=== PATIENT | female | born 1960 | race Caucasian/White ===

== ENCOUNTER 2016-12-23 11:31 | Emergency (ER) | payer MEDICARE ==
[~2016-12-23] VITALS: Ht 162.6 cm; Wt 85.0 kg
[2016-12-23] MEDS ORDERED: GABA600T PO (12:04)
[2016-12-23] MEDS ORDERED: SERO1TAB PO (12:04)
[2016-12-23] MEDS ORDERED: LEVO88TA3 PO (12:04)
[2016-12-23] MEDS ORDERED: TRAZ-136 PO (12:04)
[2016-12-23] MEDS ORDERED: COPA20IN SC (12:04)
[2016-12-23] MEDS ORDERED: BREO1INH INH (12:08)
[2016-12-23] MEDS ORDERED: PROAAER10 INH (12:08)
--- NOTE | 2016-12-23 13:37 | REP ---
Left shoulder three views : There is no fracture or dislocation. Mineralization and joint spaces are normal. There are no calcifications or foreign bodies. Impression: Negative left shoulder . Signed by Roel Mc MD 12/23/2016 01:28 P
[2016-12-23] MEDS ORDERED: OXYC1TAB23 PO (15:24)
[2016-12-23] MEDS ORDERED: IBUP-1022 PO (15:24)
[2016-12-23 15:33] VITALS: BP 143/99
[2016-12-31] MEDS ORDERED: DULO1CAP3 PO (20:55)
[2016-12-31] MEDS ORDERED: IBUP-1022 PO (20:55)
[2016-12-31] MEDS ORDERED: PANT40TA2 PO (20:55)
[2016-12-31] MEDS ORDERED: TIZA2TA PO (20:55)
[2017-01-03] MEDS ORDERED: PRED10TA2 PO ×2 (09:18→14:54)
== END 2016-12-23 15:34 | disposition home or self-care (01) ==
LOC: M ED 11:31
DX: S43.402A Unspecified sprain of left shoulder joint, initial encounter (principal); W01.198A Fall on same level from slipping, tripping and stumbling with subsequent striking against other object, initial encounter; Y92.512 Supermarket, store or market as the place of occurrence of the external cause; Y93.89 Activity, other specified; Y99.8 Other external cause status; E06.3 Autoimmune thyroiditis; F41.9 Anxiety disorder, unspecified; F33.9 Major depressive disorder, recurrent, unspecified; F17.210 Nicotine dependence, cigarettes, uncomplicated; Z79.51 Long term (current) use of inhaled steroids; Z79.899 Other long term (current) drug therapy; Z88.0 Allergy status to penicillin; Z88.1 Allergy status to other antibiotic agents

== ENCOUNTER 2017-01-03 13:02 | Inpatient (IN) | payer MEDICARE ==
[~2017-01-03] VITALS: Ht 162.6 cm; Wt 91.5 kg
[2017-01-03] MEDS: PANTOPRAZOLE 40MG TAB (PROTONIX) PO SCH (09:00)
[~2017-01-03 13:02] MED LIST: BREO1INH INH; COPA20IN SC; DULO1CAP3 PO; GABA600T PO; IBUP-1022 PO; LEVO88TA3 PO; OXYC1TAB23 PO; PANT40TA2 PO; PRED10TA2 PO; PROAAER10 INH; SERO1TAB PO; TIZA2TA PO; TRAZ-136 PO
[2017-01-03] MEDS ORDERED: FAMOTIDINE IV BAG 20 MG in APPROPRIATE DILUENT 1 EA IV ONE (14:00)
[2017-01-03] MEDS ORDERED: diphenhydrAMINE INJ 50MG/ML VIAL (J1200) IV ONE (14:00)
[2017-01-03] MEDS ORDERED: dexameTHASONE 20 MG/5 ML VIAL (J1100) IV ONE (14:00)
[2017-01-03] MEDS: MORPHINE 2 MG/ML 1ML SYRINGE IV PRN ×4 (14:12→23:26)
[2017-01-03] MEDS ORDERED: BREO1INH3 INH (14:54)
[2017-01-03] MEDS ORDERED: PRED10TA2 PO (14:54)
[2017-01-03 16:22] LABS: ALBUMIN 3.3 GM/DL (3.2-5.2); ALBUMIN/GLOBULIN RATIO 1.22 (1.00-1.93); ALKALINE PHOSPHATASE 53 U/L (45-117); ALT/SGPT 39 U/L (12-78); ANION GAP 9 MEQ/L (8-16); AST/SGOT 24 U/L (7-37); BILIRUBIN,DIRECT 0.1 MG/DL (0.0-0.2); BILIRUBIN,TOTAL 0.3 MG/DL (0.2-1.0); BLOOD UREA NITROGEN 15 MG/DL (7-18); CALCIUM LEVEL 8.4 MG/DL (8.5-10.1); CARBON DIOXIDE LEVEL 23 MEQ/L (21-32); CHLORIDE LEVEL 110 MEQ/L (98-107); COMPLEMENT C4 33.4 MG/DL (10-40); GLOMERULAR FILTRATION RATE > 60.0 (>51); GLUCOSE, FASTING 85 MG/DL (70-105); POTASSIUM SERUM 3.9 MEQ/L (3.5-5.1); SODIUM LEVEL 142 MEQ/L (136-145)
[2017-01-03] MEDS ORDERED: ACETAMINOPHEN TAB 650MG DOSE (2X325MG) PO PRN (16:30)
[2017-01-03] MEDS ORDERED: ONDANSETRON 4MG/2ML VIAL (J2405) IV PRN (16:30)
[2017-01-03] MEDS ORDERED: hydrOXYzine 50 MG TAB PO ONE (17:00)
[2017-01-03] MEDS ORDERED: raNITIdine SYRUP 150 MG/10 ML UDC PO ONE (17:00)
[2017-01-03] MEDS ORDERED: MORPHINE 2 MG/ML 1ML SYRINGE IV ONE (17:15)
[2017-01-03] MEDS ORDERED: KETOROLAC 30 MG/ML VIAL (J1885) IV ONE (17:15)
[2017-01-03] MEDS ORDERED: MORPHINE 2 MG/ML 1ML SYRINGE IV PRN (17:15)
[2017-01-03] MEDS: IPRATROPIUM 0.5MG/ALBUTEROL 2.5MG INH SOL UD 3ML (DUONEB)(J7620) NEB SCH ×2 (17:23→23:22)
--- NOTE | 2017-01-03 17:35 | HPE ---
DATE OF ADMISSION: 01/03/2017 CHIEF COMPLAINT: Lip swelling and rash. HOSPITALIST ATTENDING: Dr. Satnam Nunes HISTORY OF PRESENT ILLNESS: This is a 56-year-old female who was admitted under the hospitalist service on 01/01/2017 and discharged on 01/02/2017 with angioedema and urticaria of the entire body secondary to allergic exposure while visiting her grandchildren at [employer] on Sunday. The patient was admitted, placed on IV Solu-Medrol, after receiving Decadron in the emergency room (ER), given Benadryl and steroids with improvement of the maculopapular rash. The patient was then sent home and was found to have worsening symptoms and represented today. The patient states that she initially noticed her lip swelling up. She has no complaints of respiratory distress but was having difficulty swallowing. She had no stridor on examination per the emergency room and examination on admission. She was not discharged on steroids but called into the primary care and was given a dose of prednisone 40 mg. In the ER, the patient had maculopapular rash on the upper and lower extremities, face with swollen lips, and complaint of severe pain. Hospitalist was called for admission. PAST MEDICAL HISTORY: 1. Multiple sclerosis. 2. Hypothyroidism. 3. Reflux disease. PAST SURGICAL HISTORY: 1. Partial hysterectomy with bilateral oophorectomy due to torsion with postoperative complication of her bowel being nicked. 2. Cholecystectomy. 3. Tonsillectomy. 4. Pancreatic stents for chronic pancreatitis. HOME MEDICATIONS: - trazodone 100 nightly - Seroquel 100 nightly - Protonix 40 daily - levothyroxine 88 mcg daily - ibuprofen 600 three times a day as needed - gabapentin 600 three times a day - duloxetine 60 daily - Copaxone 20 mg subcutaneously every evening - tizanidine 2 mg twice a day - Breo Ellipta one inhaled daily - albuterol two puffs as needed FAMILY HISTORY: Noncontributory. REVIEW OF SYSTEMS: Per history of present illness (HPI). Twelve-point system otherwise negative. PHYSICAL EXAMINATION: VITAL SIGNS: Temperature 97.6, pulse 72, respiratory rate 16, blood pressure 135/90, pulse oximetry is 95% on room air. GENERAL: Awake, alert, and oriented times three, able to speak in full sentences. No drooling. The patient has no stridor on neck examination. No wheezing. HEENT: Pupils are round and reactive. Extraocular muscles are intact. The patient has macular rash on the upper and lower extremities, chest, abdomen and back, erythematous and painful, raised lesions. LUNGS: Clear to auscultation. No wheezing, rales, or rhonchi. HEART: S1, S2, sinus rhythm. ABDOMEN: Soft, nontender, nondistended. Obese abdomen. EXTREMITIES: No pitting edema. LABORATORY DATA: Sedimentation rate of 4. Sodium 142, potassium 3.9, chloride 110, bicarbonate 23, BUN 15, creatinine 0.9, glucose of 85, calcium 8.4, total bilirubin 0.3, direct bilirubin 0.1, AST 24, ALT 39, alkaline phosphatase 53, total protein of 6, albumin of 3.3, tryptase is pending. ASSESSMENT AND PLAN: 1. Angioedema of face. Continue with Solu-Medrol, nebulizer, Atarax and prednisone. 2. Multiple sclerosis. Continue all medications.
[2017-01-03 18:49] VITALS: BP 128/63
[2017-01-03] MEDS: ENOXAPARIN 40 MG/0.4 ML SYRINGE (J1650) SC SCH (20:13)
[2017-01-03] MEDS: methylPREDNISolone INJ 125 MG/2 ML VIAL (J2930) IV SCH (20:14)
[2017-01-03] MEDS: NS 1,000 ML IV SCH (20:22)
[2017-01-03 20:29] VITALS: BP 120/65
[2017-01-03] MEDS: KETOROLAC 30 MG/ML VIAL (J1885) IV SCH (23:47)
[2017-01-03] MEDS: hydrOXYzine 50 MG TAB PO SCH (23:48)
[2017-01-03] MEDS: TRIAMCINOLONE ACET 0.1% OINTMENT 80 GM TOP SCH (23:48)
[2017-01-03] MEDS: GLATIRAMER 20 MG/1 ML SC SCH (23:49)
[2017-01-04 00:22] VITALS: BP 132/73
[2017-01-04] MEDS: IPRATROPIUM 0.5MG/ALBUTEROL 2.5MG INH SOL UD 3ML (DUONEB)(J7620) NEB SCH ×4 (01:15→20:04)
[2017-01-04] MEDS: methylPREDNISolone INJ 125 MG/2 ML VIAL (J2930) IV SCH ×4 (02:30→19:42)
[2017-01-04] MEDS: MORPHINE 2 MG/ML 1ML SYRINGE IV PRN ×3 (02:31→19:43)
[2017-01-04 04:17] VITALS: BP 124/73
[2017-01-04] MEDS: diphenhydrAMINE INJ 50MG/ML VIAL (J1200) IV PRN ×4 (04:36→21:24)
[2017-01-04] MEDS: MORPHINE 4 MG/ML 1ML SYRINGE IV PRN ×2 (04:37→09:24)
[2017-01-04] MEDS: TRIAMCINOLONE ACET 0.1% OINTMENT 80 GM TOP SCH ×4 (05:14→23:45)
[2017-01-04] MEDS: KETOROLAC 30 MG/ML VIAL (J1885) IV SCH ×4 (05:14→23:44)
[2017-01-04] MEDS: hydrOXYzine 50 MG TAB PO SCH ×4 (05:14→23:44)
[2017-01-04 05:48] LABS: IMMATURE GRANULOCYTE % 0.7 % (0-0); LYMPH # 0.8 10^3/uL (1.5-4.5); LYMPH % 9.6 % (24.0-44.0); MEAN CORPUSCULAR HEMOGLOBIN 29.1 pg (27.0-33.0); MEAN CORPUSCULAR HGB CONC 33.6 g/dl (32.0-36.5); MEAN CORPUSCULAR VOLUME 86.6 fl (80.0-96.0); MONO # 0.2 10^3/uL (0.0-0.8); MONO % 1.9 % (0.0-5.0); NEUTROPHILS # 7.5 10^3/uL (1.8-7.7); NEUTROPHILS % 87.8 % (36.0-66.0); PLATELET COUNT, AUTOMATED 209 10^3/uL (150-450); RED CELL DISTRIBUTION WIDTH 13.3 % (11.5-14.5); WHITE BLOOD COUNT 8.6 10^3/uL (4.0-10.0)
[2017-01-04 06:11] LABS: ANION GAP 7 MEQ/L (8-16); BLOOD UREA NITROGEN 14 MG/DL (7-18); CALCIUM LEVEL 7.8 MG/DL (8.5-10.1); CARBON DIOXIDE LEVEL 25 MEQ/L (21-32); CHLORIDE LEVEL 107 MEQ/L (98-107); GLOMERULAR FILTRATION RATE > 60.0 (>51); GLUCOSE, FASTING 146 MG/DL (70-105); POTASSIUM SERUM 4.1 MEQ/L (3.5-5.1); SODIUM LEVEL 139 MEQ/L (136-145)
[2017-01-04 07:44] VITALS: BP 130/76
[2017-01-04] MEDS: PANTOPRAZOLE 40MG TAB (PROTONIX) PO SCH (07:50)
[2017-01-04] MEDS: NS 1,000 ML IV SCH (07:50)
[2017-01-04] MEDS: raNITIdine SYRUP 150 MG/10 ML UDC PO SCH ×2 (07:50→21:25)
[2017-01-04] MEDS: NICOTINE 7 MG/24 HR TRANSDERMAL TD SCH (07:51)
--- NOTE | 2017-01-04 10:29 | IPNPDOC ---
Text Note Date of Service The patient was seen on 01/04/17. NOTE Subjective: Patient seen and examined at bedside. Still complains of generalized itching and swelling. Denies any shortness of breath or difficulty breathing. Objective: PHYSICAL EXAMINATION: GENERAL: Awake, alert, and oriented times three, able to speak in full sentences. No drooling. The patient has no stridor on neck examination. No wheezing. HEENT: Pupils are round and reactive. Extraocular muscles are intact. The patient has macular rash on the upper and lower extremities, chest, abdomen and back, erythematous and painful, raised lesions. LUNGS: Clear to auscultation. No wheezing, rales, or rhonchi. HEART: S1, S2, sinus rhythm. ABDOMEN: Soft, nontender, nondistended. Obese abdomen. EXTREMITIES: No pitting edema. ASSESSMENT AND PLAN: 56-year-old female with refractory angioedema/allergic reaction. 1. Angioedema of face. Continue with Solu-Medrol, nebulizer, Atarax and benadryl 2. Multiple sclerosis. Continue all medications. 3. DVT prophylaxis - mechanical VS,Fishbone, I+O VS, Fishbone, I+O Laboratory Tests 01/03/17 15:36 01/04/17 05:32 Red Blood Count 4.19, Mean Corpuscular Volume 86.6, Mean Corpuscular Hemoglobin 29.1, Mean Corpuscular Hemoglobin Concent 33.6, Red Cell Distribution Width 13.3 , Neutrophils (%) (Auto) 87.8 H, Lymphocytes (%) (Auto) 9.6 L, Monocytes (%) ( Auto) 1.9, Eosinophils (%) (Auto) 0.0, Basophils (%) (Auto) 0.0, Neutrophils # ( Auto) 7.5, Lymphocytes # (Auto) 0.8 L, Monocytes # (Auto) 0.2, Eosinophils # ( Auto) 0.0, Basophils # (Auto) 0.0, Calcium Level 7.8 L Vital Signs Date Time Temp Pulse Resp B/P (MAP) Pulse Ox O2 Delivery O2 Flow Rate FiO2 01/04/17 09:24 20 01/04/17 07:44 97.3 66 130/76 (94) 92 Room Air 01/04/17 04:47 2.0 I&O- Last 24 Hours up to 6 AM 01/05/17 06:00 Intake Total 360 ml Balance 360 ml THUAN HORNE MD Jan 04, 2017 10:29
[2017-01-04] MEDS ORDERED: diphenhydrAMINE CREAM 30GM TOP PRN (10:45)
[2017-01-04 11:40] VITALS: BP 126/67
[2017-01-04 15:49] VITALS: BP 121/67
[2017-01-04] MEDS ORDERED: diphenhydrAMINE INJ 50MG/ML VIAL (J1200) IV ONE (17:15)
[2017-01-04 20:00] VITALS: BP 123/69
[2017-01-04] MEDS: GLATIRAMER 20 MG/1 ML SC SCH (21:24)
[2017-01-04] MEDS: ENOXAPARIN 40 MG/0.4 ML SYRINGE (J1650) SC SCH (21:25)
[2017-01-04] MEDS: traZODone 100 MG TAB PO SCH (22:27)
[2017-01-05] VITALS (7 sets, daily range): BP systolic 111–141; BP diastolic 59–78
[2017-01-05] MEDS: IPRATROPIUM 0.5MG/ALBUTEROL 2.5MG INH SOL UD 3ML (DUONEB)(J7620) NEB SCH ×4 (01:09→20:00)
[2017-01-05] MEDS: methylPREDNISolone INJ 125 MG/2 ML VIAL (J2930) IV SCH ×2 (02:25→08:50)
[2017-01-05] MEDS: diphenhydrAMINE INJ 50MG/ML VIAL (J1200) IV PRN ×5 (02:25→22:33)
[2017-01-05] MEDS: MORPHINE 2 MG/ML 1ML SYRINGE IV PRN ×4 (04:22→23:34)
[2017-01-05] MEDS: KETOROLAC 30 MG/ML VIAL (J1885) IV SCH (05:29)
[2017-01-05] MEDS: TRIAMCINOLONE ACET 0.1% OINTMENT 80 GM TOP SCH ×4 (05:29→23:34)
[2017-01-05] MEDS: hydrOXYzine 50 MG TAB PO SCH ×4 (05:29→23:33)
[2017-01-05 07:13] LABS: BASO % 0.1 % (0.0-1.0); IMMATURE GRANULOCYTE % 1.4 % (0-0); LYMPH # 1.2 10^3/uL (1.5-4.5); LYMPH % 11.2 % (24.0-44.0); MEAN CORPUSCULAR HEMOGLOBIN 28.9 pg (27.0-33.0); MEAN CORPUSCULAR HGB CONC 34.1 g/dl (32.0-36.5); MEAN CORPUSCULAR VOLUME 84.8 fl (80.0-96.0); MONO # 0.4 10^3/uL (0.0-0.8); MONO % 3.4 % (0.0-5.0); NEUTROPHILS # 8.7 10^3/uL (1.8-7.7); NEUTROPHILS % 83.9 % (36.0-66.0); PLATELET COUNT, AUTOMATED 223 10^3/uL (150-450); RED CELL DISTRIBUTION WIDTH 13.2 % (11.5-14.5); WHITE BLOOD COUNT 10.4 10^3/uL (4.0-10.0)
[2017-01-05 07:24] LABS: ALBUMIN 2.6 GM/DL (3.2-5.2); ALBUMIN/GLOBULIN RATIO 0.81 (1.00-1.93); ALKALINE PHOSPHATASE 45 U/L (45-117); ALT/SGPT 23 U/L (12-78); ANION GAP 8 MEQ/L (8-16); AST/SGOT 14 U/L (7-37); BILIRUBIN,TOTAL 0.2 MG/DL (0.2-1.0); BLOOD UREA NITROGEN 22 MG/DL (7-18); CALCIUM LEVEL 8.5 MG/DL (8.5-10.1); CARBON DIOXIDE LEVEL 23 MEQ/L (21-32); CHLORIDE LEVEL 110 MEQ/L (98-107); CREATININE FOR GFR 0.82 MG/DL (0.55-1.02); GLOMERULAR FILTRATION RATE > 60.0 (>51); GLUCOSE, FASTING 131 MG/DL (70-105); POTASSIUM SERUM 4.5 MEQ/L (3.5-5.1); SODIUM LEVEL 141 MEQ/L (136-145); TOTAL PROTEIN 5.8 GM/DL (6.4-8.2)
[2017-01-05] MEDS: NICOTINE 7 MG/24 HR TRANSDERMAL TD SCH (08:50)
[2017-01-05] MEDS: PANTOPRAZOLE 40MG TAB (PROTONIX) PO SCH (08:50)
[2017-01-05] MEDS: raNITIdine SYRUP 150 MG/10 ML UDC PO SCH ×2 (08:50→21:00)
--- NOTE | 2017-01-05 10:18 | IPNPDOC ---
Text Note Date of Service The patient was seen on 01/05/17. NOTE Subjective: Patient seen and examined at bedside. Still complains of generalized itching and swelling. Today is also complaining of new onset bilateral lower extremity numbness and weakness. Denies any shortness of breath or difficulty breathing. Objective: PHYSICAL EXAMINATION: GENERAL: Awake, alert, and oriented times three, able to speak in full sentences. No drooling. The patient has no stridor on neck examination. No wheezing. HEENT: NC/AT, EOMI, PERRL LUNGS: CTA B/L. No wheezing, rales, or rhonchi. HEART: +S1S2, RRR ABDOMEN: Soft, nontender, nondistended. Obese abdomen. EXTREMITIES: No pitting edema. NEURO: diminished sensation bilateral lower extremities, L>R; decreased strength bilateral lower extremities ASSESSMENT AND PLAN: 56-year-old female with refractory angioedema/allergic reaction. 1. Angioedema/allergic reaction - transitioning to high dose steroids - 1g IV q24h solumedrol - continue with nebulizer, Atarax, benadryl 2. Multiple sclerosis - continue home regimen 3. Weakness/numbness - pending MRI c/t spine - pending neurology c/s 4. DVT prophylaxis - mechanical VS,Fishbone, I+O VS, Fishbone, I+O Laboratory Tests 01/05/17 06:57 Red Blood Count 4.46, Mean Corpuscular Volume 84.8, Mean Corpuscular Hemoglobin 28.9, Mean Corpuscular Hemoglobin Concent 34.1, Red Cell Distribution Width 13.2 , Neutrophils (%) (Auto) 83.9 H, Lymphocytes (%) (Auto) 11.2 L, Monocytes (%) ( Auto) 3.4, Eosinophils (%) (Auto) 0.0, Basophils (%) (Auto) 0.1, Neutrophils # ( Auto) 8.7 H, Lymphocytes # (Auto) 1.2 L, Monocytes # (Auto) 0.4, Eosinophils # ( Auto) 0.0, Basophils # (Auto) 0.0, Calcium Level 8.5, Aspartate Amino Transf ( AST/SGOT) 14, Alanine Aminotransferase (ALT/SGPT) 23, Alkaline Phosphatase 45, Total Bilirubin 0.2, Total Protein 5.8 L, Albumin 2.6 #L Vital Signs Date Time Temp Pulse Resp B/P (MAP) Pulse Ox O2 Delivery O2 Flow Rate FiO2 01/05/17 08:51 20 Nasal Cannula 2.0 01/05/17 08:00 97.4 63 127/78 (14) 94 I&O- Last 24 Hours up to 6 AM 01/06/17 06:00 Intake Total 200 ml Output Total 0 ml Balance 200 ml THUAN HORNE MD Jan 05, 2017 10:18
[2017-01-05] MEDS ORDERED: LORazepam 2 MG/ML VIAL (J2060) IV ONE (11:00)
[2017-01-05] MEDS ORDERED: PROHANCE 279.3MG/ML 5ML VIAL (A9576) As Ordered ONE (20:15)
[2017-01-05] MEDS ORDERED: PROHANCE 279.3MG/ML 15ML VIAL (A9576) As Ordered ONE (20:15)
[2017-01-05] MEDS: methylPREDNISolone 1,000 MG, VIAL MATE ADAPTER 1 EACH in D5W 250 ML IV SCH (22:30)
[2017-01-05] MEDS: traZODone 100 MG TAB PO SCH (22:31)
[2017-01-05] MEDS: ENOXAPARIN 40 MG/0.4 ML SYRINGE (J1650) SC SCH (22:32)
[2017-01-05] MEDS: GLATIRAMER 20 MG/1 ML SC SCH (22:32)
[2017-01-06] MEDS: IPRATROPIUM 0.5MG/ALBUTEROL 2.5MG INH SOL UD 3ML (DUONEB)(J7620) NEB SCH ×4 (01:13→18:12)
[2017-01-06 03:45] VITALS: BP 117/72
[2017-01-06] MEDS: diphenhydrAMINE INJ 50MG/ML VIAL (J1200) IV PRN (03:47)
[2017-01-06] MEDS: MORPHINE 2 MG/ML 1ML SYRINGE IV PRN ×4 (03:48→19:56)
[2017-01-06 05:58] LABS: CALCIUM LEVEL 8.1 MG/DL (8.5-10.1); CREATININE FOR GFR 1.08 MG/DL (0.55-1.02); GLOMERULAR FILTRATION RATE 56.3 (>51); POTASSIUM SERUM 3.8 MEQ/L (3.5-5.1)
[2017-01-06] MEDS: TRIAMCINOLONE ACET 0.1% OINTMENT 80 GM TOP SCH ×3 (06:00→17:11)
[2017-01-06 06:17] LABS: MEAN CORPUSCULAR HEMOGLOBIN 29.2 pg (27.0-33.0); MEAN CORPUSCULAR HGB CONC 32.2 g/dl (32.0-36.5); MEAN CORPUSCULAR VOLUME 90.6 fl (80.0-96.0); PLATELET COUNT, AUTOMATED 174 10^3/uL (150-450); RED CELL DISTRIBUTION WIDTH 13.5 % (11.5-14.5); WHITE BLOOD COUNT 11.7 10^3/uL (4.0-10.0)
[2017-01-06] MEDS: hydrOXYzine 50 MG TAB PO SCH ×3 (06:25→17:20)
[2017-01-06 08:00] VITALS: BP 120/62
[2017-01-06] MEDS ORDERED: guaiFENesin 200 MG TAB PO PRN (08:15)
[2017-01-06] MEDS: raNITIdine SYRUP 150 MG/10 ML UDC PO SCH ×3 (09:00→21:00)
[2017-01-06] MEDS: NICOTINE 7 MG/24 HR TRANSDERMAL TD SCH (09:35)
[2017-01-06] MEDS: PANTOPRAZOLE 40MG TAB (PROTONIX) PO SCH (09:36)
--- NOTE | 2017-01-06 10:18 | REP ---
CT CHEST WITHOUT CONTRAST: 01/06/2017. Clinical history: Dyspnea, cough. Comparison: Portable chest 12/31/2016. Findings: Noncontrast images with coronal and sagittal reconstructions provided. Extensive consolidative opacities in the left greater than right lower lobe posterior and deep sulcus bilaterally. Other areas of atelectasis or infiltrate in the right middle lobe along the minor fissure and in the superior segment of the lower lobe. Some inferior lingular segment atelectasis or infiltrate also noted. No gross effusion. There is a calcified granuloma in the left upper lobe. It is 10 mm and seen best on image 18 of series 201. Heart is mildly prominent. Some left ventricular enlargement suggested. No pericardial thickening or effusion. The aorta has calcifications at the arch but without aneurysm. No pathologic sized mediastinal or hilar adenopathy. No axillary or supraclavicular mass seen. Bone windows show the sternum, manubrium, medial clavicles, lateral clavicle on the right, humeral heads, scapulae, ribs and the thoracic spine all without fracture or destructive lesion. Upper abdomen seen in part with no splenomegaly or focal lesion. The gallbladder is absent. Liver is not enlarged and that portion included shows no focal lesion. There is no ascites. Small hiatal hernia suggested. No adrenal mass or nodule. Upper poles kidneys intact. That portion of pancreas included intact. The visualized bowel loops intact. Impression: 1. Bilateral lower lobe consolidative pneumonia and/or atelectasis with other patchy areas of linear atelectatic changes right middle lobe and inferior lingular segment at the left heart border. No effusion. Infiltrates greater left than right. 2. Mild cardiomegaly with left ventricular enlargement. No pericardial thickening or effusion. No adenopathy or aortic aneurysm. 3. Small hiatal hernia. Upper abdomen otherwise unremarkable. Bones intact. Signed by Kody Elliott MD 01/06/2017 07:20 P
--- NOTE | 2017-01-06 11:59 | CR ---
DATE OF CONSULTATION: 01/05/2017 REFERRING PHYSICIAN: Dr. Satnam Nunes. REASON FOR CONSULTATION: Patient with a rash, angioedema and numbness of both feet. HISTORY OF PRESENT ILLNESS: The patient is a 56-year-old woman with history of multiple sclerosis since 2006 who lives in [facility] and was at [employer] on the weekend with her grandchildren. She developed a rash and angioedema of entire body secondary to allergic reaction. She was admitted at [facility] on January 01 and was discharged on January 02, 2017 and her symptoms improved but they returned. Since then, the patient has hives which come and go. She gets swelling of her lips at times. There is no respiratory distress. She feels pain throughout her body including joints, skin and muscle. This pain is 10/10 in intensity. She feels intense itching, stinging and burning sensation. She feels weakness of her left side of body and feels legs are weaker than arms. She denies any problems with her urinary bladder. She denies any seizures. She complains of 10/10 neck and back pain. She complains of severe 10/10 daily headache. She has history of chronic headaches and back pain but they are worse since her allergic reaction. She feels tingling and numbness sensation in her feet which also is intermittent. The patient has history of multiple sclerosis and has been on Copaxone for many years. The patient states that she sees her neurologist in [facility]. PAST MEDICAL HISTORY: Multiple sclerosis. Hypothyroidism. Acid reflux. Partial hysterectomy. Cholecystectomy. Tonsillectomy. Pancreatic stents for chronic pancreatitis. FAMILY HISTORY: Noncontributory. HOME MEDICATIONS: - trazodone 1 mg by mouth daily at bedtime - Seroquel 1 mg by mouth daily at bedtime - Protonix 40 mg by mouth daily - levothyroxine 88 mcg by mouth daily - ibuprofen 600 mg by mouth three times daily as needed - gabapentin 600 mg by mouth three times daily - Cymbalta 60 mg by mouth daily - Copaxone 20 mg subcutaneous every day - tizanidine 2 mg by mouth twice daily as needed - Breo Ellipta one inhalation daily - albuterol 2 puffs every 4 hours as needed REVIEW OF SYSTEMS: All systems were reviewed and found to be noncontributory. PHYSICAL EXAMINATION: Temperature 97.4, blood pressure 127/78, pulse 63, respiratory 18. Heart: Regular rate and rhythm. Lungs: Clear to auscultation. Abdomen: Soft, nontender, nondistended. Neurological exam: The patient is awake, alert, oriented to place, person and time. Normal speech, comprehension and repetition. Extraocular muscles are intact. No facial weakness. Tongue and uvula are midline. 4+/5 strength in all four extremities with intermittent activation. Deep tendon flexes 2+ throughout. Plantars are downgoing. Sensation is intact to light touch, pinprick and vibration. No dysmetria. Her gait is mildly unsteady. ASSESSMENT: 1. Urticaria and angioedema. 2. History of multiple sclerosis. 3. There is concern for transverse myelitis although pseudo exacerbation due to her urticaria and angioedema and serum sickness is in differential diagnosis. 4. Rule out Lyme disease. PLAN: 1. Check Lyme antibody. 2. MRI cervical and thoracic spine with and without contrast. 3. Solu-Medrol 1000 mg IV daily for 3 days. 4. Treatment of urticaria and angioedema per internal medicine team. 5. Physical and occupational therapy. The patient will follow with her neurologist in [facility].
[2017-01-06 12:00] VITALS: BP 134/80
[2017-01-06] MEDS: LevoFLOXacin IV 750 MG in APPROPRIATE DILUENT 1 EA IV SCH (12:05)
[2017-01-06] MEDS ORDERED: SLF 3 ML SYR IV PRN (15:00)
[2017-01-06 16:00] VITALS: BP 106/61
[2017-01-06] MEDS: methylPREDNISolone 1,000 MG, VIAL MATE ADAPTER 1 EACH in D5W 250 ML IV SCH (17:20)
[2017-01-06] MEDS: IPRATROPIUM 0.5MG/ALBUTEROL 2.5MG INH SOL UD 3ML (DUONEB)(J7620) NEB PRN (19:43)
[2017-01-06 20:00] VITALS: BP 173/89
[2017-01-06] MEDS: traZODone 100 MG TAB PO SCH (22:37)
[2017-01-06] MEDS: GLATIRAMER 20 MG/1 ML SC SCH (22:37)
[2017-01-06] MEDS: SLF 3 ML SYR IV SCH (22:38)
[2017-01-06] MEDS: ENOXAPARIN 40 MG/0.4 ML SYRINGE (J1650) SC SCH (22:38)
[2017-01-06 23:59] VITALS: BP 134/67
[2017-01-07] MEDS: hydrOXYzine 50 MG TAB PO SCH ×4 (00:22→17:15)
[2017-01-07] MEDS: MORPHINE 2 MG/ML 1ML SYRINGE IV PRN ×4 (00:23→14:18)
[2017-01-07] MEDS: IPRATROPIUM 0.5MG/ALBUTEROL 2.5MG INH SOL UD 3ML (DUONEB)(J7620) NEB SCH ×4 (01:44→18:33)
[2017-01-07 04:00] VITALS: BP 139/82
[2017-01-07 05:18] LABS: MEAN CORPUSCULAR HEMOGLOBIN 29.2 pg (27.0-33.0); MEAN CORPUSCULAR HGB CONC 34.3 g/dl (32.0-36.5); PLATELET COUNT, AUTOMATED 273 10^3/uL (150-450); RED CELL DISTRIBUTION WIDTH 13.3 % (11.5-14.5); WHITE BLOOD COUNT 15.5 10^3/uL (4.0-10.0)
[2017-01-07] MEDS: SLF 3 ML SYR IV SCH ×3 (05:19→22:00)
[2017-01-07 05:32] LABS: ANION GAP 8 MEQ/L (8-16); BLOOD UREA NITROGEN 22 MG/DL (7-18); CALCIUM LEVEL 8.2 MG/DL (8.5-10.1); CARBON DIOXIDE LEVEL 26 MEQ/L (21-32); CHLORIDE LEVEL 111 MEQ/L (98-107); CREATININE FOR GFR 0.88 MG/DL (0.55-1.02); GLOMERULAR FILTRATION RATE > 60.0 (>51); GLUCOSE, FASTING 134 MG/DL (70-105); POTASSIUM SERUM 3.7 MEQ/L (3.5-5.1); SODIUM LEVEL 145 MEQ/L (136-145)
[2017-01-07] MEDS: IPRATROPIUM 0.5MG/ALBUTEROL 2.5MG INH SOL UD 3ML (DUONEB)(J7620) NEB PRN (05:41)
[2017-01-07] MEDS: TRIAMCINOLONE ACET 0.1% OINTMENT 80 GM TOP SCH ×4 (06:00→17:07)
--- NOTE | 2017-01-07 07:36 | IPNPDOC ---
Text Note Date of Service The patient was seen on 01/06/17. NOTE Subjective: Patient seen and examined at bedside. Still complains of generalized itching and swelling although it has improved. Also complains of shortness of breath, denies cough. Still complains of bilateral lower extremity numbness and weakness. Objective: PHYSICAL EXAMINATION: GENERAL: Awake, alert, and oriented times three, able to speak in full sentences. No drooling. The patient has no stridor on neck examination. No wheezing. HEENT: NC/AT, EOMI, PERRL LUNGS: CTA B/L. No wheezing, rales, or rhonchi. HEART: +S1S2, RRR ABDOMEN: Soft, nontender, nondistended. Obese abdomen. EXTREMITIES: No pitting edema. NEURO: diminished sensation bilateral lower extremities, L>R; decreased strength bilateral lower extremities ASSESSMENT AND PLAN: 56-year-old female with refractory angioedema/allergic reaction. 1. Angioedema/allergic reaction - transitioned to high dose steroids - 1g IV q24h solumedrol day 2/3 - continue with nebulizer, Atarax, benadryl 2. Multiple sclerosis - continue home regimen 3. Weakness/numbness - MRI c/t spine with/without contrast - report pending - d/w neurology - assistance appreciated 4. SOB - unclear etiology - possibly PNA - CT chest for further evaluation 4. DVT prophylaxis - lovenox VS,Fishbone, I+O VS, Fishbone, I+O Laboratory Tests 01/07/17 05:03 Red Blood Count 4.32, Mean Corpuscular Volume 85.0, Mean Corpuscular Hemoglobin 29.2, Mean Corpuscular Hemoglobin Concent 34.3, Red Cell Distribution Width 13.3 , Calcium Level 8.2 L Vital Signs Date Time Temp Pulse Resp B/P (MAP) Pulse Ox O2 Delivery O2 Flow Rate FiO2 01/07/17 05:24 24 Nasal Cannula 2.0 01/07/17 04:00 97.8 74 139/82 (101) 92 THUAN HORNE MD Jan 07, 2017 07:36
--- NOTE | 2017-01-07 07:37 | IPNPDOC ---
Text Note Date of Service The patient was seen on 01/07/17. NOTE Subjective: Patient seen and examined at bedside. Still complains of generalized itching and swelling although it has improved. Also complains of shortness of breath, denies cough. Still complains of bilateral lower extremity numbness and weakness. Objective: PHYSICAL EXAMINATION: GENERAL: Awake, alert, and oriented times three, able to speak in full sentences. No drooling. The patient has no stridor on neck examination. No wheezing. HEENT: NC/AT, EOMI, PERRL LUNGS: CTA B/L. No wheezing, rales, or rhonchi. HEART: +S1S2, RRR ABDOMEN: Soft, nontender, nondistended. Obese abdomen. EXTREMITIES: No pitting edema. NEURO: diminished sensation bilateral lower extremities, L>R; decreased strength bilateral lower extremities ASSESSMENT AND PLAN: 56-year-old female with refractory angioedema/allergic reaction. 1. Angioedema/allergic reaction - transitioned to high dose steroids - 1g IV q24h solumedrol day 3/3 - continue with nebulizer, Atarax, benadryl 2. Multiple sclerosis - continue home regimen 3. Weakness/numbness - MRI c/t spine with/without contrast - report pending - d/w neurology - assistance appreciated 4. SOB - unclear etiology - possibly PNA - continue with Levaquin - CT angio/LE dopplers pending - further eval PE - ABG pending 4. DVT prophylaxis - lovenox VS,Fishbone, I+O VS, Fishbone, I+O Laboratory Tests 01/07/17 05:03 Red Blood Count 4.32, Mean Corpuscular Volume 85.0, Mean Corpuscular Hemoglobin 29.2, Mean Corpuscular Hemoglobin Concent 34.3, Red Cell Distribution Width 13.3 , Calcium Level 8.2 L Vital Signs Date Time Temp Pulse Resp B/P (MAP) Pulse Ox O2 Delivery O2 Flow Rate FiO2 01/07/17 05:24 24 Nasal Cannula 2.0 01/07/17 04:00 97.8 74 139/82 (101) 92 THUAN HORNE MD Jan 07, 2017 07:37
[2017-01-07 07:52] LABS: ABG BASE EXCESS 2.1 (-2.0-2.0); ABG HCO3 23.7 MEQ/L (22.0-26.0); ABG PARTIAL PRESSURE CO2 28.7 mmHg (35.0-45.0); ABG PARTIAL PRESSURE O2 56.9 mmHg (75.0-100.0); ABG STANDARD HCO3 26.2 MEQ/L (22.0-26.0); ABG TOTAL CO2 24.6 MEQ/L (22.0-29.0); ABG pH (ARTERIAL) 7.535 UNITS (7.350-7.450)
[2017-01-07 08:00] VITALS: BP 163/74
[2017-01-07] MEDS ORDERED: ISOVUE-370 76% 100ML VIAL (Q9967) As Ordered ONE (08:46)
[2017-01-07] MEDS: raNITIdine SYRUP 150 MG/10 ML UDC PO SCH ×2 (09:00→21:00)
[2017-01-07] MEDS: PANTOPRAZOLE 40MG TAB (PROTONIX) PO SCH (10:04)
[2017-01-07] MEDS: NICOTINE 7 MG/24 HR TRANSDERMAL TD SCH (10:04)
[2017-01-07] MEDS: LevoFLOXacin IV 750 MG in APPROPRIATE DILUENT 1 EA IV SCH (10:19)
[2017-01-07 12:00] VITALS: BP 139/84
[2017-01-07] MEDS: ONDANSETRON 4MG/2ML VIAL (J2405) IV PRN (15:55)
[2017-01-07 16:00] VITALS: BP 145/73
[2017-01-07] MEDS: methylPREDNISolone 1,000 MG, VIAL MATE ADAPTER 1 EACH in D5W 250 ML IV SCH (17:16)
[2017-01-07] MEDS ORDERED: METOCLOPRAMIDE INJ 10MG/2ML VIAL (J2765) IV ONE (18:00)
[2017-01-07 19:52] VITALS: BP 132/77
[2017-01-07] MEDS: traZODone 100 MG TAB PO SCH (21:00)
[2017-01-07] MEDS: ENOXAPARIN 40 MG/0.4 ML SYRINGE (J1650) SC SCH (23:07)
[2017-01-07] MEDS: GLATIRAMER 20 MG/1 ML SC SCH (23:07)
[2017-01-08] MEDS: hydrOXYzine 50 MG TAB PO SCH ×5 (00:36→23:46)
[2017-01-08 00:46] VITALS: BP 124/66
[2017-01-08] MEDS: IPRATROPIUM 0.5MG/ALBUTEROL 2.5MG INH SOL UD 3ML (DUONEB)(J7620) NEB SCH ×4 (01:10→20:00)
[2017-01-08 05:26] LABS: MEAN CORPUSCULAR HEMOGLOBIN 28.8 pg (27.0-33.0); MEAN CORPUSCULAR HGB CONC 33.5 g/dl (32.0-36.5); MEAN CORPUSCULAR VOLUME 85.8 fl (80.0-96.0); PLATELET COUNT, AUTOMATED 275 10^3/uL (150-450); RED CELL DISTRIBUTION WIDTH 13.5 % (11.5-14.5); WHITE BLOOD COUNT 13.4 10^3/uL (4.0-10.0)
[2017-01-08 05:44] LABS: ANION GAP 7 MEQ/L (8-16); BLOOD UREA NITROGEN 24 MG/DL (7-18); CARBON DIOXIDE LEVEL 28 MEQ/L (21-32); CHLORIDE LEVEL 109 MEQ/L (98-107); CREATININE FOR GFR 0.88 MG/DL (0.55-1.02); GLOMERULAR FILTRATION RATE > 60.0 (>51); GLUCOSE, FASTING 120 MG/DL (70-105); POTASSIUM SERUM 3.8 MEQ/L (3.5-5.1); SODIUM LEVEL 144 MEQ/L (136-145)
[2017-01-08] MEDS: TRIAMCINOLONE ACET 0.1% OINTMENT 80 GM TOP SCH ×5 (06:00→23:46)
[2017-01-08 06:10] VITALS: BP 133/68
--- NOTE | 2017-01-08 06:13 | REP ---
CT ANGIOGRAM CHEST: 01/07/2017. Comparison: Noncontrast CT 01/06/2017, chest x-ray 12/31/2016. Clinical history: Dyspnea. Infiltrates. Evaluate for PE. Technique: Bolus of 75 mL Isovue 370 given. Technologist notes indicate high pressure for the injector which was reduced when the patient straightened her arm. The IV site disconnected but only about 5 mL estimated contrast. No infiltration of the IV site. I discussed this with the technologist as the images demonstrate bolus timing was off with opacification of the aorta and not the pulmonary arteries. This significantly limits the sensitivity of the examination. Findings: There are extensive left lower lobe and slightly smaller right lower lobe infiltrates with air bronchograms representing pneumonia or consolidative atelectasis. That appearance is similar to yesterday. Some right middle lobe infiltrate also noted. The appearance of the lung miranda is unchanged. There is no pneumothorax. No parenchymal mass. There is a calcified granuloma in the left upper lobe. Heart size unchanged with left ventricular enlargement and no pericardial thickening or effusion. The aorta is without aneurysm or dissection. There is very poor contrast density in the pulmonary arteries. The main right and left pulmonary arteries show no filling defects. Lobar arteries are poorly opacified but the right lower lobe pulmonary artery and posterior and medial basal segments suggest filling defect with rim of partially opacified contrast around them and I am suspicious for pulmonary emboli. Other vessels have less density overall and I cannot discern possibility of emboli or not. No pathologic sized adenopathy. Bones unchanged. Upper abdomen unchanged. The visualized portion of liver and spleen intact. Small hiatal hernia. Impression: 1. Poor opacification of pulmonary arteries. Despite this, I am highly suspicious for a right lower lobe pulmonary artery filling defect which extends into the medial basal and posterior basal segments on images 84 through 92. This suggests acute pulmonary embolism. Contrast density in the remainder of the lobar segmental pulmonary arteries cannot allow differentiation of density.2. No aortic aneurysm or dissection, mediastinal or hilar adenopathy or other acute finding in the mediastinum. 3. Bilateral lower lobe and right middle lobe infiltrates, left greater than right in the lower lobes. No change. Signed by Kody Elliott MD 01/07/2017 07:06 P
--- NOTE | 2017-01-08 06:14 | REP ---
BILATERAL LOWER EXTREMITY DOPPLER VENOUS ULTRASOUND: Comparison: None. Clinical history: Lower extremity evaluation for DVT. Technique: The deep venous system of the bilateral lower extremities is evaluated with pal scale imaging, compression ultrasound, color imaging and duplex Doppler interrogation. Examination from the groin through the popliteal fossa into the proximal calf. Findings: There is full compressibility from the common femoral vein in the inguinal region through the popliteal vein on both sides. Color imaging confirms patency throughout the course of the deep venous system. There is respiratory variation and augmented flow at all levels. Impression: 1. No Doppler venous ultrasound evidence of DVT in the bilateral lower extremities. Signed by Kody Elliott MD 01/07/2017 11:01 A
[2017-01-08] MEDS: ONDANSETRON 4MG/2ML VIAL (J2405) IV PRN ×3 (06:57→20:09)
[2017-01-08] MEDS: SLF 3 ML SYR IV SCH ×3 (06:57→22:00)
--- NOTE | 2017-01-08 07:52 | REPUSA ---
MRI cervical spine without contrast Clinical statement: numbness and weakness. Technique: Multiecho multiplanar MRI images of the cervical spine were obtained before and after admi nistration of intravenous gadolinium contrast. No comparison is available. Findings: The cervical vertebral bodies are in satisfactory position and alignment. No fractures or d islocations are demonstrated. Normal heterogeneous bone marrow signal is noted. No osseous tumors are seen. The visualized portions of the posterior fossa are unremarkable. The cervical cranial junction is intact.. The intervertebral disc spaces and heights are well-maintained. The facet joints are int act without evidence of subluxation. The cervical spinal cord demonstrates normal signal and contour. The surrounding soft tissues are within normal limits. No abnormal enhancing mass is appreciated. At C5/C6, there is a left foraminal/paracentral disc protrusion causing mild mass effect in the anter ior thecal sac. There is moderately severe narrowing of the left neural foramen at this level. The ri ght neural for him and patent. There is no evidence of central canal stenosis. Impression: 1. Left paracentral/foraminal disc protrusion at C5/C6, causing moderately severe left neural foramin al narrowing. No evidence of central canal stenosis. 2. No abnormal enhancing masses.
--- NOTE | 2017-01-08 07:52 | REPUSA ---
MRI of the thoracic spine without contrast Clinical statement: bilateral weakness and numbness. Technique: Multiecho multiplanar MRI images of the thoracic spine were obtained before and after admi nistration of intravenous gadolinium contrast. No comparison is available. Findings: The thoracic vertebral bodies are in satisfactory position and alignment. No fractures or d islocations are demonstrated. The bone marrow appears unremarkable. Intervertebral disc spaces are we ll maintained. There is no evidence of disc herniation or protrusion. The neural foramen are patent. The facet joints are intact. The surrounding soft tissues are within normal limits. No enhancing mass lesions are appreciated. Impression: Unremarkable MRI examination of the thoracic spine.
[2017-01-08 08:00] VITALS: BP 141/84
--- NOTE | 2017-01-08 08:55 | IPNPDOC ---
Text Note Date of Service The patient was seen on 01/08/17. NOTE Subjective: Patient seen and examined at bedside. Still complains of generalized swelling although it has improved slightly. Denies cough. Still complains of bilateral lower extremity numbness and weakness. Objective: PHYSICAL EXAMINATION: GENERAL: Awake, alert, and oriented times three, able to speak in full sentences. No drooling. The patient has no stridor on neck examination. No wheezing. HEENT: NC/AT, EOMI, PERRL LUNGS: CTA B/L. No wheezing, rales, or rhonchi. HEART: +S1S2, RRR ABDOMEN: Soft, nontender, nondistended. Obese abdomen. EXTREMITIES: Peripheral edema NEURO: diminished sensation bilateral lower extremities, L>R; decreased strength bilateral lower extremities ASSESSMENT AND PLAN: 56-year-old female with refractory angioedema/allergic reaction. Patient was admitted one week ago for a two day hospital stay for assumed allergic reaction [place], which improved with steroid therapy. Patient returned roughly one day later with worsening symptoms including angioedema and urticaria. Hospital stay complicated with bilateral lower extremity numbness/ weakness and shortness of breath. 1. Angioedema/allergic reaction - continue with nebulizer, Atarax, benadryl 2. Multiple sclerosis - continue home regimen 3. Weakness/numbness - MRI c/t spine with/without contrast - report pending - d/w neurology - assistance appreciated - completed 3 days high dose steroids - MRI brain pending 4. SOB/questionable PE - CT angio was a poor study, questionable PE - patient today states she has a history of multiple PE - 2012, 2014; history is not clear, she does not recall which hospital she was admitted to for the diagnoses; she does not recall the reason she was admitted either, states it was likely secondary to an MS exacerbation; she also states she was on Xarelto, but was given different opinions from physicians regarding role of anti- coagulation - PNA? Receiving Levaquin - D Dimer elevated/ LE dopplers are negative - likely repeat CT angio 5. DVT prophylaxis - xarelto Dispo: likely repeat CT angio, given history of multiple PE and possible PE on current CTA resumed NOAC, call placed to her PCP Dr. Tanya Melgar [phone] , waiting for call back. Extensive discussion with concerned family member over the telephone - Stacie. Khanh FU, I+O VS, Khanh, I+O Laboratory Tests 01/08/17 05:03 Red Blood Count 4.45, Mean Corpuscular Volume 85.8, Mean Corpuscular Hemoglobin 28.8, Mean Corpuscular Hemoglobin Concent 33.5, Red Cell Distribution Width 13.5 , Calcium Level 8.0 L Vital Signs Date Time Temp Pulse Resp B/P (MAP) Pulse Ox O2 Delivery O2 Flow Rate FiO2 01/08/17 08:00 98.3 66 22 141/84 (103) 92 Nasal Cannula 2.0 THUAN HORNE MD Jan 08, 2017 08:55
[2017-01-08] MEDS: NICOTINE 7 MG/24 HR TRANSDERMAL TD SCH (09:00)
[2017-01-08] MEDS: raNITIdine SYRUP 150 MG/10 ML UDC PO SCH ×2 (09:00→20:09)
[2017-01-08] MEDS: PANTOPRAZOLE 40MG TAB (PROTONIX) PO SCH (09:35)
[2017-01-08] MEDS: LevoFLOXacin IV 750 MG in APPROPRIATE DILUENT 1 EA IV SCH (11:10)
[2017-01-08 12:00] VITALS: BP 130/68
[2017-01-08] MEDS ORDERED: LORazepam 2 MG/ML VIAL (J2060) IV ONE (13:45)
[2017-01-08 16:00] VITALS: BP 144/88
[2017-01-08] MEDS: methylPREDNISolone 1,000 MG, VIAL MATE ADAPTER 1 EACH in D5W 250 ML IV SCH ×2 (17:45→18:00)
[2017-01-08] MEDS: RIVAROXABAN 20 MG TAB (XARELTO) PO SCH (18:00)
--- NOTE | 2017-01-08 18:56 | REP ---
Bilateral upper extremity duplex venous ultrasound: History: Evaluate for DVT. Findings: The left and right internal jugular, axillary, brachial, basilic, and cephalic veins are anechoic and compressible in the left upper extremity. Color flow imaging is homogeneous. Spectral Doppler interrogation is unremarkable. There is no evidence of left or right upper extremity venous thrombosis. Impression: Negative bilateral upper extremity duplex venous ultrasound. No evidence of venous thrombosis. Signed by Demetrio Garcia MD 01/08/2017 06:47 P
[2017-01-08 19:15] VITALS: BP 136/77
[2017-01-08] MEDS: traZODone 100 MG TAB PO SCH (20:09)
[2017-01-08] MEDS: GLATIRAMER 20 MG/1 ML SC SCH (20:09)
[2017-01-08] MEDS ORDERED: METOCLOPRAMIDE INJ 10MG/2ML VIAL (J2765) IV ONE (22:15)
[2017-01-09] VITALS: BP 149/79
[2017-01-09] MEDS ORDERED: CALCIUM CARBONATE 500 MG CHEW U/D PO ONE (01:00)
[2017-01-09] MEDS: IPRATROPIUM 0.5MG/ALBUTEROL 2.5MG INH SOL UD 3ML (DUONEB)(J7620) NEB SCH ×4 (01:05→20:00)
[2017-01-09] MEDS: ONDANSETRON 4MG/2ML VIAL (J2405) IV PRN ×3 (01:13→14:13)
[2017-01-09 04:00] VITALS: BP 144/80
[2017-01-09] MEDS ORDERED: METOCLOPRAMIDE INJ 10MG/2ML VIAL (J2765) IV ONE (05:15)
[2017-01-09] MEDS: SLF 3 ML SYR IV SCH ×3 (05:26→21:23)
[2017-01-09] MEDS: TRIAMCINOLONE ACET 0.1% OINTMENT 80 GM TOP SCH ×4 (05:26→23:56)
[2017-01-09] MEDS: hydrOXYzine 50 MG TAB PO SCH ×3 (05:26→20:12)
[2017-01-09] MEDS ORDERED: LevoFLOXacin 750 MG TABLET PO SCH (06:00)
[2017-01-09 06:13] LABS: MEAN CORPUSCULAR HGB CONC 34.3 g/dl (32.0-36.5); MEAN CORPUSCULAR VOLUME 84.5 fl (80.0-96.0); PLATELET COUNT, AUTOMATED 304 10^3/uL (150-450); RED CELL DISTRIBUTION WIDTH 13.3 % (11.5-14.5); WHITE BLOOD COUNT 15.6 10^3/uL (4.0-10.0)
--- NOTE | 2017-01-09 06:40 | REPUSA ---
CLINICAL HISTORY: Abdominal pain. COMMENTS: Metallic clips in the right upper quadrant. There is gas in both large and small bowel with no eviden ce for obstruction. Large amount of fecal material is present through out the colon. There is no evidence for free air, free fluid, masses, organomegaly, or urinary calculi. Impression: Large amount of fecal material. Thank you for your kind referral of this patient.
[2017-01-09 06:44] LABS: ANION GAP 6 MEQ/L (8-16); BLOOD UREA NITROGEN 25 MG/DL (7-18); CALCIUM LEVEL 8.2 MG/DL (8.5-10.1); CARBON DIOXIDE LEVEL 28 MEQ/L (21-32); CHLORIDE LEVEL 106 MEQ/L (98-107); CREATININE FOR GFR 0.84 MG/DL (0.55-1.02); GLOMERULAR FILTRATION RATE > 60.0 (>51); GLUCOSE, FASTING 74 MG/DL (70-105); SODIUM LEVEL 140 MEQ/L (136-145)
[2017-01-09 07:45] VITALS: BP 138/82
[2017-01-09 08:56] LABS: ERYTHROCYTE SEDIMENTATION RATE 2 mm/hr (0-30)
[2017-01-09] MEDS: PANTOPRAZOLE 40MG TAB (PROTONIX) PO SCH (09:39)
[2017-01-09] MEDS: raNITIdine SYRUP 150 MG/10 ML UDC PO SCH ×2 (09:39→20:13)
[2017-01-09] MEDS: NICOTINE 7 MG/24 HR TRANSDERMAL TD SCH (09:40)
[2017-01-09] MEDS: METOCLOPRAMIDE INJ 10MG/2ML VIAL (J2765) IV SCH ×3 (09:59→21:23)
[2017-01-09 12:00] VITALS: BP 149/81
--- NOTE | 2017-01-09 12:05 | REP ---
CHEST X-RAY, PA AND LATERAL: 01/09/2017. Comparison: CTA chest 01/07/2017, portable chest 12/31/2016. Clinical history: Chest x-ray to accompany VQ scan. CTA 2 days ago technically unsatisfactory but suspicious for right lower lobe pulmonary embolus. Findings: Two views of the chest were performed. Lungs are somewhat hypoinflated. There is linear atelectatic change in right mid lower lung zone and more consolidative atelectasis or infiltrate left lower lobe posteriorly and laterally. No gross effusion. Heart not grossly enlarged for this degree of inflation. The aorta and airway intact. Bony thorax without focal lesion. No free air. Impression: 1. Posterior left lower lobe infiltrate and/or atelectasis with linear atelectatic change right mid lower lung zone and base in a horizontal pattern. 2. Hypoinflated. No gross effusion. Signed by Kody Elliott MD 01/09/2017 01:12 P
--- NOTE | 2017-01-09 12:25 | REP ---
Ventilation-perfusion lung scan: History: Question pulmonary embolus. Comparison is made with today's chest x-ray. Technique: 1.0 mCi of technetium-99m DTPA aerosol is utilized for the ventilation study and was followed by a 5.5 mCi dose of technetium-99m MAA given intravenously for the perfusion examination. Eight planar images are required for each portion of the study. Scintigraphic findings: There is some mild central bronchial deposition of inspired tracer on the ventilation study consistent with some degree of COPD. On the perfusion study, there are several peripheral wedge shaped subsegmental defects in the perfusion study which are mismatched on the ventilation exam. These are in the right lower lobe predominantly. Impression: High probability scan for pulmonary embolism. Mismatched defects in the right lower lobe. Signed by Demetrio Garcia MD 01/09/2017 02:10 P
[2017-01-09] MEDS ORDERED: LORazepam 2 MG/ML VIAL (J2060) IV STA (15:41)
[2017-01-09] MEDS ORDERED: GASTROGRAFIN SOLUTION 30ML PO ONE (16:00)
--- NOTE | 2017-01-09 16:05 | IPNPDOC ---
Text Note Date of Service The patient was seen on 01/09/17. NOTE History of present illness: Ms. Barillas is a 56 y/o female who was admitted to the hospital on 01-01-17 with a generalized rash that developed a few hours after returning from a trip to a farm with her family. The patient was admitted to the hospital and received steroids and benedryl with improvement of her symptoms. The rash had include both of her ears, abdomen, lips, upper and lower bilateral extremities and even genitalia and breasts. She was discharged one day later after resolution of her skin symptoms but unfortunately after returning home she noted another eruption of her rash all over her body and face with accompanying lip swelling, but no sob or chest pain. She received prednisone outpatient from her PCP but was not discharged on steroids after the first admission. She did receive three days of methylprednisilone and benedryl therapy so far. VS,Fishbone, I+O VS, Fishbone, I+O Laboratory Tests 01/09/17 05:44 Red Blood Count 4.59, Mean Corpuscular Volume 84.5, Mean Corpuscular Hemoglobin 29.0, Mean Corpuscular Hemoglobin Concent 34.3, Red Cell Distribution Width 13.3 , Calcium Level 8.2 L Vital Signs Date Time Temp Pulse Resp B/P (MAP) Pulse Ox O2 Delivery O2 Flow Rate FiO2 01/09/17 12:00 97.6 47 20 149/81 (103) 93 Room Air 01/09/17 00:00 2.0 I&O- Last 24 Hours up to 6 AM 01/10/17 06:00 Output Total 400 ml Balance -400 ml ASHLEY JAMA DO Jan 09, 2017 16:05
--- NOTE | 2017-01-09 16:09 | CR.PDOC ---
[facility] Consultation Consultation DATE OF CONSULTATION: Jan 03, 2017 at 13:02 Asked to consult by hospitalist for angioedema/hives History of present illness: Ms. Barillas is a 56 y/o female who was admitted to the hospital on 01-01-17 with a generalized rash that developed a few hours after returning from a trip to a farm with her family. The patient was admitted to the hospital and received steroids and benedryl with improvement of her symptoms. The rash had include both of her ears, abdomen, lips, upper and lower bilateral extremities and even genitalia and breasts. She was discharged one day later after resolution of her skin symptoms but unfortunately after returning home she noted another eruption of her rash all over her body and face with accompanying lip swelling, but no sob or chest pain. She received prednisone outpatient from her PCP but was not discharged on steroids after the first admission. She did receive three days of methylprednisolone and benedryl therapy so far and is now experiencing nausea and a new rash on her face that just began within the last hour. She did tell me that she [facility] and was not urinated on nor scratched or bit by any animal including cats or dogs, she has no pets at home either. Past medical history includes multiple sclerosis, depression, hypothyroidism and GERD Past surgical history includes hysterectomy partial with b/l oophorectomy due to torsion with postoperative complication of bowel laceration, cholecystectomy , tonsillectomy and pancreatic stents for chronic pancreatitis ROS: The patient only complains of nausea and the rash on her face which apparently has now developed over the past one hour, it is not itchy. She is very tearful on exam due to her rash and not "knowing what is going on". She denied chest pain, SOB, cough, no abdominal pain, constipation or diarrhea, no pain with urination or blood in urine, no fevers, she does admit to some dry heaves recently. She has no appetite. Denies headache or change in vision. No numbness or weakness. Labs: WBC: 15.6 H/H 13.3/38.8 Platelets: 304 ESR 2 CRP <.30 Na 140 K 4.0 Chloride 106 Carbon dioxide 28 calcium 8.2 Imaging: Thoracic spine MRI negative, Cervical spine MRI showed left paracentral/ foraminal disc protrusion at C5/C6 causing moderately severe left neural foraminal narrowing with no evidence of central canal stenosis or abnormal enhancing masses. Duplex u/s of lower extremities negative for DVT. Chest CT showed Bilateral lower lobe consolidative pneumonia and/or atelectasis with other patchy areas of linear atelectatic changes right middle lobe and inferior lingular segment at the left heart border with some mild cardiomegaly and left ventricular enlargement with no pericardial thickening or effusion and no adenopathy or aortic aneurysm. She does have a small hiatal hernia on imaging. She also had a lung V/Q scan which showed probable pulmonary embolism and mismatched defects in right lower lobe. Lung V/Q and a CXR which showed a posterior left lower lobe infiltrate or possible atelectasis in the right mid lower lung area with hypoinflation. Her CT -angiography showed poor opacification of the pulmonary arteries and suspicion right lower lobe pulmonary artery filling defect with bilateral lower lobe and right middle lobe infiltrates. Physical Exam: Vitals: 97.6 temperature pulse 47 BPM Blood pressure 149/81 93% on room air respiratory rate 20 breaths per minute General: laying in bed, tearful about the re-occurrence of rash/hives on her face in the last hour, cooperative, AAOX3 Heart: normal s1 and s2, no murmurs, rubs or gallops appreciated Lungs: CTA b/l, no rales, rhonchi or wheezing appreciated, good air effort b/l and expansion Abdomen: Soft, non-distended, diffusely tender throughout due to " my nausea", no organomegaly, [id number] Extremities: No clubbing, cyanosis or edema, no rash appreciated HEENT: NCAT, EOMI, nares patent b/l, fine maculopapular rash/hives on b/l cheeks , non-pruitic, slightly red, not hot to the touch, blanching, circular Impression: Ms. Barillas is a 56 year old female who was admitted for generalized hives after a visit [place]. PLAN: 1. Urticaria- Likely idiopathic and not infectious or allergic in etiology. We spoke to Dr. Corey of allergy and immunology who recommended beginning cetirizine 10 mg daily, Atarax 50 mg BID and Xolair on outpatient therapy. We have implemented these recommendations. He can see the patient as soon as one day after she is discharged, also recommended prednisone taper, will give one dose of solumederol 60mg IV and begin prednisone 40 mg daily tomorrow. 2. Nausea- since the patient is complaining of dry heaves and nauseas, would recommend limiting the amount of medications she is prescribed as she is refusing many all ready due to them making her sick to her stomach. Have discontinued protonix and continued zantac 150 mg BID. 2. Abnormal CXR- not likely pneumonia, the patient does have an elevation in white count but clinically has no SOB or cough and no elevation in sedimentation rate or CRP. Does not need antibiotic coverage, have discontinued levaquin. Flu and respiratory panel is negative. Do not believe this is infectious in nature. Vital Signs/I&O Vital Signs Date Time Temp Pulse Resp B/P (MAP) Pulse Ox O2 Delivery O2 Flow Rate FiO2 01/09/17 12:00 97.6 47 20 149/81 (103) 93 Room Air 01/09/17 00:00 2.0 I&O- Last 24 Hours up to 6 AM 01/10/17 06:00 Output Total 400 ml Balance -400 ml Laboratory Data Labs 24H Laboratory Tests 2 01/09/17 05:44: Nucleated Red Blood Cells % (auto) 0.0, Erythrocyte Sedimentation Rate 2, Anion Gap 6L, Glomerular Filtration Rate > 60.0, Blood Urea Nitrogen 25H, Creatinine 0.84, Sodium Level 140, Potassium Level 4.0, Chloride Level 106, Carbon Dioxide Level 28, Calcium Level 8.2L, C-Reactive Protein, Quantitative < 0.30 01/09/17 15:29: CBC/BMP Laboratory Tests 01/09/17 05:44 Red Blood Count 4.59, Mean Corpuscular Volume 84.5, Mean Corpuscular Hemoglobin 29.0, Mean Corpuscular Hemoglobin Concent 34.3, Red Cell Distribution Width 13.3 , Calcium Level 8.2 L Microbiology Microbiology 01/06/17 Blood Culture - Preliminary, Resulted No Growth after 72 hours. All specime... 01/06/17 Blood Culture - Preliminary, Resulted No Growth after 72 hours. All specime... 01/06/17 Influenza Virus Type A Antigen - Final, Complete 01/06/17 Influenza Virus Type B Antigen - Final, Complete 01/06/17 Respiratory Virus Panel (PCR) (LATRICIA) - Final, Complete 01/05/17 Urine Culture - Final, Complete Escherichia Coli Allergies Coded Allergies: Clindamycin (Verified Allergy, Intermediate, 12/23/16) Penicillins (Verified Allergy, Intermediate, 12/23/16) Home Medications Scheduled (Copaxone) 20 Mg/Ml Inj, 20 MG SC QPM, (Reported) Duloxetine Hcl (Duloxetine HCl) 60 Mg Cap, 60 MG PO DAILY, (Reported) Fluticasone/Vilanterol (Breo Ellipta 200-25 Mcg/INH) 1 Inh Inh, 1 PUFF INH DAILY , (Reported) Gabapentin (Gabapentin) 600 Mg Tab, 600 MG PO TID, (Reported) Levothyroxine Sodium (Synthroid) 88 Mcg Tab, 88 MCG PO DAILY, (Reported) Pantoprazole Sodium (Pantoprazole Sodium) 40 Mg Tab, 40 MG PO DAILY, (Reported) Prednisone (Prednisone) 10 Mg Tab, 10 MG PO ASDIRECTED, (Reported) Take 4 tabs daily x 3 days, then 3 tabs daily x 3 days, then 2 tabs daily x 3 days, then 1 tab daily x 3 days and stop Quetiapine Fumerate (Seroquel) 100 Mg Tab, 100 MG PO QHS, (Reported) Tizanidine HCl (Tizanidine HCl) 2 Mg Tab, 2 MG PO BID, (Reported) Trazodone HCl (Trazodone HCl) 100 Mg Tab, 100 MG PO QHS, (Reported) Scheduled PRN Albuterol Sulfate (Proair Hfa) 108 Mcg/Act Aer, 2 PUFF INH PRN PRN for SHORTNESS OF BREATH, (Reported) GME ATTESTATION GME ATTESTATION My preceptor for this patient encounter was physically present in the building during the encounter and was fully available. As needed, all aspects of the patient interview, examination, medical decision making process, and medical care plan development were reviewed and approved by the preceptor. Preceptor is aware and concurs with the plan as stated in the body of this note and will attest to such by his/her cosignature. ASHLEY JAMA DO Jan 09, 2017 16:09
[2017-01-09] MEDS ORDERED: ISOVUE-370 76% 100ML VIAL (Q9967) As Ordered ONE (16:12)
[2017-01-09 16:30] VITALS: BP 137/80
[2017-01-09] MEDS ORDERED: GASTROGRAFIN SOLUTION 30ML (Q9963) PO ONE (16:30)
[2017-01-09] MEDS: RIVAROXABAN 20 MG TAB (XARELTO) PO SCH (17:12)
[2017-01-09] MEDS: NS 1,000 ML IV SCH (17:12)
[2017-01-09] MEDS ORDERED: methylPREDNISolone INJ 125 MG/2 ML VIAL (J2930) IV ONE (17:15)
[2017-01-09 17:54] LABS: IMMUNOGLOBULIN M 79.4 MG/DL (40-230)
--- NOTE | 2017-01-09 19:52 | IPNPDOC ---
Text Note Date of Service The patient was seen on 01/09/17. NOTE Patient seen and examined at bedside. reported improved rash. Denies cough, sob. Still complains of bilateral lower extremity numbness and weakness and intermittent burning sensation. refused MRI brain today. Reported nausea and dysphagia Objective: PHYSICAL EXAMINATION: GENERAL: Awake, alert, and oriented times three, able to speak in full sentences. No drooling. The patient has no stridor on neck examination. No wheezing. HEENT: NC/AT, EOMI, PERRL LUNGS: CTA B/L. No wheezing, rales, or rhonchi. HEART: +S1S2, RRR ABDOMEN: Soft, nontender, nondistended. Obese abdomen. EXTREMITIES: Peripheral edema NEURO: diminished sensation bilateral lower extremities, L>R; decreased strength bilateral lower extremities ASSESSMENT AND PLAN: 56-year-old female PHMs Multiple sclerosis, Hypothyroidism and Reflux disease with refractory angioedema/allergic reaction. Patient was admitted one week ago for a two day hospital stay for assumed allergic reaction after [place] , which improved with steroid therapy. Patient returned roughly one day later with worsening symptoms including angioedema and urticaria. Hospital stay complicated with bilateral lower extremity numbness/weakness and shortness of breath. dysphagia with poor oral intact 1. Angioedema/allergic reaction - continue with nebulizer, Atarax, benadryl -steroid stopped -no respiratory complaints rash improved 2. Multiple sclerosis - continue home regimen consulte neuro 3. Weakness/numbness - MRI c/t spine with/without contrast - report pending - d/w neurology - assistance appreciated - completed 3 days high dose steroids - MRI brain pending 4. SOB/ PE, h/o PE not on AC - CT angio was a poor study, questionable PE, VQ study suggestive of PE - patient today states she has a history of multiple PE - 2012, 2014; history is not clear, she does not recall which hospital she was admitted to for the diagnoses; she does not recall the reason she was admitted either, states it was likely secondary to an MS exacerbation; she also states she was on Xarelto, but was given different opinions from physicians regarding role of anti- coagulation - PNA? Receiving Levaquin, discontinued by ID - D Dimer elevated/ LE dopplers are negative continue AC Xarelto 5. hypothyroidism thyroid profile synthroid 6 Neuropathy c/w home meds [address] abd with contrast unable to do esophagram or upper GI series under repair no GI service IVF martin Carranza consider Gastric emptying study 5. DVT prophylaxis - xarelto Dispo: thyroid profile, MRI brain, CT abd, gastric emptying, ID consulted, PCP Dr. Tanya Melgar [phone], possible transfer for further GI workup with not improved VS,Fishbone, I+O VS, Fishbone, I+O Laboratory Tests 01/09/17 05:44 Red Blood Count 4.59, Mean Corpuscular Volume 84.5, Mean Corpuscular Hemoglobin 29.0, Mean Corpuscular Hemoglobin Concent 34.3, Red Cell Distribution Width 13.3 , Calcium Level 8.2 L Vital Signs Date Time Temp Pulse Resp B/P (MAP) Pulse Ox O2 Delivery O2 Flow Rate FiO2 01/09/17 16:30 96.2 76 20 137/80 (99) 94 Room Air 01/09/17 00:00 2.0 I&O- Last 24 Hours up to 6 AM 01/10/17 06:00 Intake Total 60 ml Output Total 800 ml Balance -740 ml MACARENA FUNK MD Jan 09, 2017 19:52
[2017-01-09 20:00] VITALS: BP 155/92
[2017-01-09] MEDS: traZODone 100 MG TAB PO SCH (20:12)
[2017-01-09] MEDS: GLATIRAMER 20 MG/1 ML SC SCH (20:13)
--- NOTE | 2017-01-09 20:15 | ECHO ---
DATE OF PROCEDURE: 01/09/2017 REFERRING PHYSICIAN: Dr. Roseanne Messer Study was performed on 01/09/2017 for indication edema. The patient measures 163 cm and weighs 99 kg. DIMENSIONS: IVS: 1.1 LV: 4.2 LVPW: 1.1 LA: 4.1 Aorta: 3.2 FINDINGS: The study is of good technical quality. Left ventricle is of normal size and systolic function with estimated left ventricular ejection fraction (LVEF) approximately 65%. No segmental wall motion abnormalities are appreciated. Right ventricle is also normal size and systolic function. Both atria appear grossly normal for patient's age. No pericardial effusion is noted. Aortic, mitral, tricuspid valves appear normal. Pulmonic valve was not well seen. Inferior vena cava is borderline dilated but appropriately collapses with respiration. Aortic root is normal. Aortic arch and abdominal aorta also appear normal. Doppler interrogation of aortic valve reveals no stenosis or insufficiency. There is mild mitral insufficiency. No tricuspid insufficiency and trace pulmonic insufficiency. Mitral inflow pattern and tissue Doppler imaging of mitral annulus likely reveal normal diastolic function (mitral inflow E velocity 76 cm/s, A velocity 75, E prime septal 6.4 and E prime lateral 9.3 cm/s). CONCLUSIONS: 1. Study is of good technical quality. 2. Normal left ventricular (LV) size and systolic function, normal diastolic function. 3. No significant valvular disease. 4. Normal or mildly elevated central venous pressure. 5. Unable to estimate pulmonary artery pressure but no findings to suggest pulmonary hypertension. COMMENTS: Subacute bacterial endocarditis (SBE) prophylaxis is not recommended.
[2017-01-09] MEDS: GABAPENTIN 300 MG CAP PO SCH (21:23)
--- NOTE | 2017-01-09 21:53 | REP ---
CT abdomen pelvis with IV contrast, without bowel contrast: There are no comparison studies. The visualized lower lung miranda demonstrate a subsegmental infiltrate in the left lower lobe and atelectasis in the right lower lobe. There is a small left pleural effusion. The hepatic parenchyma is unremarkable. There are surgical clips in the gallbladder fossa. The pancreas is unremarkable. The stomach is not distended. There is no evidence of gastric outlet obstruction. There is a small hiatal hernia. The spleen, adrenals and kidneys are unremarkable. The abdominal aorta is unremarkable. There is no bowel distension or obstruction. There are diverticuli throughout the entire colon from cecum to distal sigmoid colon. There is no CT evidence of diverticulitis. Pelvis: The bladder is unremarkable. There is no adenopathy or ascites. The pelvic bowel loops are unremarkable except for colonic divert 2 kg cyst without diverticulitis. Impression: There is diverticulosis universalis. There is no bowel distension or obstruction. There is no gastric outlet obstruction. Small hiatal hernia. Cholecystectomy. Infiltrate in the lower lobe of the left lung. Small left pleural effusion. Atelectasis in the right lower lobe. Signed by Roel Mc MD 01/09/2017 09:45 P
[2017-01-10] VITALS (8 sets, daily range): BP systolic 100–131; BP diastolic 56–81
[2017-01-10 00:06] LABS: Lyme Disease IgG/IgM Antibodie <0.91 ISR (0.00-0.90); Lyme Disease IgM Ab Quantitati <0.80 index (0.00-0.79)
[2017-01-10] MEDS: IPRATROPIUM 0.5MG/ALBUTEROL 2.5MG INH SOL UD 3ML (DUONEB)(J7620) NEB SCH ×5 (02:00→20:00)
[2017-01-10] MEDS: METOCLOPRAMIDE INJ 10MG/2ML VIAL (J2765) IV SCH ×4 (03:12→20:55)
[2017-01-10] MEDS: LEVOTHYROXINE 88MCG TABLET (0.088 MG) PO SCH (05:20)
[2017-01-10] MEDS: SLF 3 ML SYR IV SCH ×3 (05:20→20:55)
[2017-01-10] MEDS: TRIAMCINOLONE ACET 0.1% OINTMENT 80 GM TOP SCH ×3 (05:20→18:00)
[2017-01-10 06:04] LABS: MEAN CORPUSCULAR HEMOGLOBIN 29.1 pg (27.0-33.0); MEAN CORPUSCULAR HGB CONC 34.7 g/dl (32.0-36.5); MEAN CORPUSCULAR VOLUME 83.7 fl (80.0-96.0); PLATELET COUNT, AUTOMATED 271 10^3/uL (150-450); RED CELL DISTRIBUTION WIDTH 13.1 % (11.5-14.5); WHITE BLOOD COUNT 14.8 10^3/uL (4.0-10.0)
[2017-01-10 06:29] LABS: ANION GAP 8 MEQ/L (8-16); BLOOD UREA NITROGEN 16 MG/DL (7-18); CALCIUM LEVEL 7.8 MG/DL (8.5-10.1); CARBON DIOXIDE LEVEL 25 MEQ/L (21-32); CHLORIDE LEVEL 104 MEQ/L (98-107); CREATININE FOR GFR 0.69 MG/DL (0.55-1.02); GLOMERULAR FILTRATION RATE > 60.0 (>51); GLUCOSE, FASTING 86 MG/DL (70-105); POTASSIUM SERUM 4.2 MEQ/L (3.5-5.1); SODIUM LEVEL 137 MEQ/L (136-145); T UPTAKE 35 % (30-39)
[2017-01-10] MEDS: NS 1,000 ML IV SCH (08:55)
[2017-01-10] MEDS: NICOTINE 7 MG/24 HR TRANSDERMAL TD SCH (09:00)
[2017-01-10] MEDS: CETIRIZINE (ZyrTEC) 10 MG TAB PO SCH (09:31)
[2017-01-10] MEDS: predniSONE 20 MG TAB PO SCH (09:31)
[2017-01-10] MEDS: hydrOXYzine 50 MG TAB PO SCH ×2 (09:31→20:53)
[2017-01-10] MEDS ORDERED: LORazepam 2 MG/ML VIAL (J2060) IV ONE (12:30)
[2017-01-10] MEDS: DULoxetine 30 MG CAP (CYMBALTA) PO SCH (12:41)
[2017-01-10] MEDS: GABAPENTIN 300 MG CAP PO SCH ×3 (12:41→20:54)
[2017-01-10] MEDS: ONDANSETRON 4MG/2ML VIAL (J2405) IV PRN (12:42)
[2017-01-10] MEDS: raNITIdine SYRUP 150 MG/10 ML UDC PO SCH ×2 (12:58→20:55)
[2017-01-10] MEDS ORDERED: PROHANCE 279.3MG/ML 15ML VIAL (A9576) As Ordered ONE (17:26)
[2017-01-10] MEDS ORDERED: PROHANCE 279.3MG/ML 5ML VIAL (A9576) As Ordered ONE (17:26)
[2017-01-10] MEDS: RIVAROXABAN 20 MG TAB (XARELTO) PO SCH (18:41)
--- NOTE | 2017-01-10 18:44 | IPNPDOC ---
Text Note Date of Service The patient was seen on 01/10/17. NOTE Patient seen and examined at bedside. reported improved rash. Denies cough, sob. Still complains of bilateral lower extremity numbness and weakness and intermittent burning sensation. Reported nausea and dysphagia but improved from yesterday Objective: PHYSICAL EXAMINATION: GENERAL: Awake, alert, and oriented times three, able to speak in full sentences. No drooling. The patient has no stridor on neck examination. No wheezing. HEENT: NC/AT, EOMI, PERRL LUNGS: CTA B/L. No wheezing, rales, or rhonchi. HEART: +S1S2, RRR ABDOMEN: Soft, nontender, nondistended. Obese abdomen. EXTREMITIES: Peripheral edema NEURO: diminished sensation bilateral lower extremities, L>R; decreased strength bilateral lower extremities ASSESSMENT AND PLAN: 56-year-old female PHMs Multiple sclerosis, Hypothyroidism and Reflux disease with refractory angioedema/allergic reaction. Patient was admitted one week ago for a two day hospital stay for assumed allergic reaction [place] , which improved with steroid therapy. Patient returned roughly one day later with worsening symptoms including angioedema and urticaria. Hospital stay complicated with bilateral lower extremity numbness/weakness and shortness of breath. dysphagia with poor oral intact 1. Angioedema/allergic reaction - continue with nebulizer, Atarax, benadryl -zytec, prednisone -no respiratory complaints rash improved Dr Trammell discussed case with Dr Corey f/u with Allergy after DC 2. Multiple sclerosis - continue home regimen consulted neuro 3. Weakness/numbness - MRI c/t spine with/without contrast - report pending - d/w neurology - assistance appreciated - completed 3 days high dose steroids - MRI brain pending 4. SOB/ PE, h/o PE not on AC - CT angio was a poor study, questionable PE, VQ study suggestive of PE - patient today states she has a history of multiple PE - 2014; history is not clear, she does not recall which hospital she was admitted to for the diagnoses; she does not recall the reason she was admitted either, states it was likely secondary to an MS exacerbation; she also states she was on Xarelto, but was given different opinions from physicians regarding role of anti- coagulation - PNA? Receiving Levaquin, discontinued by ID - D Dimer elevated/ LE dopplers are negative continue AC Xarelto 5. hypothyroidism thyroid profile synthroid 6 Neuropathy c/w home meds [address] abd with contrast unable to do esophagram or upper GI series under repair no GI service IVF martin Carranza Gastric emptying study if not improved would need transfer 5. DVT prophylaxis - xarelto Dispo: MRI brain, gastric emptying, ID consulted, PCP Dr. Tanya Melgar , possible transfer for further GI workup with not improved VS,Fishbone, I+O VS, Fishbone, I+O Laboratory Tests 01/10/17 05:47 Calcium Level 7.8 L 01/10/17 05:48 Red Blood Count 4.54, Mean Corpuscular Volume 83.7, Mean Corpuscular Hemoglobin 29.1, Mean Corpuscular Hemoglobin Concent 34.7, Red Cell Distribution Width 13.1 Vital Signs Date Time Temp Pulse Resp B/P (MAP) Pulse Ox O2 Delivery O2 Flow Rate FiO2 01/10/17 15:53 97.5 66 20 131/74 (93) 96 Room Air 01/09/17 00:00 2.0 I&O- Last 24 Hours up to 6 AM 01/11/17 06:00 Intake Total 600 ml Output Total 800 ml Balance -200 ml MACARENA FUNK MD Jan 10, 2017 18:44
[2017-01-10] MEDS: traZODone 100 MG TAB PO SCH (20:53)
[2017-01-10] MEDS: GLATIRAMER 20 MG/1 ML SC SCH (20:54)
[2017-01-11 00:06] LABS: C1 ESTER INHIB. NON FUNCTIONAL 36 mg/dL (21-39); C1 ESTERASE INHIB. FUNCTIONAL > 86 (.); COAGULATION FACTOR XII ACTIVIT 47 % (50-150); TRYPTASE 12.3 ug/L (2.2-13.2)
[2017-01-11] MEDS: IPRATROPIUM 0.5MG/ALBUTEROL 2.5MG INH SOL UD 3ML (DUONEB)(J7620) NEB SCH ×4 (01:50→19:52)
[2017-01-11] MEDS: METOCLOPRAMIDE INJ 10MG/2ML VIAL (J2765) IV SCH ×4 (03:12→21:21)
[2017-01-11] MEDS: NS 1,000 ML IV SCH (03:13)
[2017-01-11 05:00] VITALS: BP 102/59
[2017-01-11] MEDS: LEVOTHYROXINE 88MCG TABLET (0.088 MG) PO SCH (05:51)
[2017-01-11] MEDS: TRIAMCINOLONE ACET 0.1% OINTMENT 80 GM TOP SCH ×5 (05:51→23:43)
[2017-01-11] MEDS: SLF 3 ML SYR IV SCH ×3 (05:51→21:21)
[2017-01-11 06:07] LABS: MEAN CORPUSCULAR HGB CONC 34.3 g/dl (32.0-36.5); MEAN CORPUSCULAR VOLUME 84.4 fl (80.0-96.0); PLATELET COUNT, AUTOMATED 281 10^3/uL (150-450); RED CELL DISTRIBUTION WIDTH 13.2 % (11.5-14.5); WHITE BLOOD COUNT 14.6 10^3/uL (4.0-10.0)
[2017-01-11 06:24] LABS: ANION GAP 6 MEQ/L (8-16); BLOOD UREA NITROGEN 15 MG/DL (7-18); CALCIUM LEVEL 7.8 MG/DL (8.5-10.1); CARBON DIOXIDE LEVEL 27 MEQ/L (21-32); CHLORIDE LEVEL 107 MEQ/L (98-107); CREATININE FOR GFR 0.79 MG/DL (0.55-1.02); GLOMERULAR FILTRATION RATE > 60.0 (>51); GLUCOSE, FASTING 79 MG/DL (70-105); POTASSIUM SERUM 3.7 MEQ/L (3.5-5.1); SODIUM LEVEL 140 MEQ/L (136-145)
[2017-01-11 08:00] VITALS: BP 135/86
[2017-01-11] MEDS: raNITIdine SYRUP 150 MG/10 ML UDC PO SCH ×3 (09:00→20:52)
[2017-01-11] MEDS: NICOTINE 7 MG/24 HR TRANSDERMAL TD SCH (09:00)
--- NOTE | 2017-01-11 09:58 | REP ---
MRI BRAIN WITHOUT AND WITH CONTRAST: HISTORY: Weakness. CONTRAST: ProHance 16.4 mL. The examination is available for review at 9 a.m. 01/11/2017. Several punctate areas of increased signal intensity on T2-weighted images are present in the periventricular and subcortical white matter. This represents small vessel ischemic disease. There is no intraparenchymal hemorrhage, infarct, mass or midline shift. There is no abnormal enhancement. The ventricular system is normal in appearance. There is no extracerebral collection. The sinuses are clear. IMPRESSION: Minimal small vessel ischemic disease. Signed by Satnam Purdy MD 01/11/2017 10:01 A
[2017-01-11] MEDS: CETIRIZINE (ZyrTEC) 10 MG TAB PO SCH (11:24)
[2017-01-11] MEDS: DULoxetine 30 MG CAP (CYMBALTA) PO SCH (11:24)
[2017-01-11] MEDS: GABAPENTIN 300 MG CAP PO SCH ×3 (11:24→20:47)
[2017-01-11] MEDS: predniSONE 20 MG TAB PO SCH (11:24)
[2017-01-11] MEDS: hydrOXYzine 50 MG TAB PO SCH ×2 (11:25→20:49)
[2017-01-11 12:00] VITALS: BP 139/87
[2017-01-11 14:20] VITALS: BP 109/68
[2017-01-11] MEDS: RIVAROXABAN 20 MG TAB (XARELTO) PO SCH (17:18)
--- NOTE | 2017-01-11 18:22 | IPNPDOC ---
Text Note Date of Service The patient was seen on 01/11/17. NOTE Patient seen and examined at bedside. rash resolved. Denies cough, sob. numbness and tenderness improved. Reported nausea and dysphagia but improved from yesterday. diet advanced Objective: PHYSICAL EXAMINATION: GENERAL: Awake, alert, and oriented times three, able to speak in full sentences. No drooling. The patient has no stridor on neck examination. No wheezing. HEENT: NC/AT, EOMI, PERRL LUNGS: CTA B/L. No wheezing, rales, or rhonchi. HEART: +S1S2, RRR ABDOMEN: Soft, nontender, nondistended. Obese abdomen. EXTREMITIES: Peripheral edema NEURO: diminished sensation bilateral lower extremities, L>R; decreased strength bilateral lower extremities ASSESSMENT AND PLAN: 56-year-old female PHMs Multiple sclerosis, Hypothyroidism and Reflux disease with refractory angioedema/allergic reaction. Patient was admitted one week ago for a two day hospital stay for assumed allergic reaction [place] , which improved with steroid therapy. Patient returned roughly one day later with worsening symptoms including angioedema and urticaria. Hospital stay complicated with bilateral lower extremity numbness/weakness and shortness of breath. dysphagia with poor oral intact 1. Angioedema/allergic reaction - continue with nebulizer, Atarax, benadryl -zytec, prednisone -no respiratory complaints rash improved Dr Trammell discussed case with Dr Croey f/u with Allergy after DC 2. Multiple sclerosis - continue home regimen consulted neuro 3. Weakness/numbness - MRI c/t spine with/without contrast - report pending - d/w neurology - assistance appreciated - completed 3 days high dose steroids - MRI brain wnl need outpatient nerve conduction study 4. SOB/ PE, h/o PE not on AC - CT angio was a poor study, questionable PE, VQ study suggestive of PE - patient today states she has a history of multiple PE - 2014; history is not clear, she does not recall which hospital she was admitted to for the diagnoses; she does not recall the reason she was admitted either, states it was likely secondary to an MS exacerbation; she also states she was on Xarelto, but was given different opinions from physicians regarding role of anti- coagulation - PNA? Receiving Levaquin, discontinued by ID - D Dimer elevated/ LE dopplers are negative continue AC Xarelto 5. 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 DVT prophylaxis - xarelto Dispo: PCP Dr. Tanya Melgar [phone], possible transfer for further GI workup with not improved, diet advanced VS,Fishbone, I+O VS, Fishbone, I+O Laboratory Tests 01/11/17 05:30 Red Blood Count 4.69, Mean Corpuscular Volume 84.4, Mean Corpuscular Hemoglobin 29.0, Mean Corpuscular Hemoglobin Concent 34.3, Red Cell Distribution Width 13.2 , Calcium Level 7.8 L Vital Signs Date Time Temp Pulse Resp B/P (MAP) Pulse Ox O2 Delivery O2 Flow Rate FiO2 01/11/17 14:20 98.3 77 18 109/68 (82) 93 Room Air 01/09/17 00:00 2.0 I&O- Last 24 Hours up to 6 AM 01/12/17 06:00 Intake Total 720 ml Output Total 900 ml Balance -180 ml MACARENA FUNK MD Jan 11, 2017 18:22
[2017-01-11 20:40] VITALS: BP 132/78
[2017-01-11] MEDS: traZODone 100 MG TAB PO SCH (20:47)
[2017-01-11] MEDS: GLATIRAMER 20 MG/1 ML SC SCH (20:47)
[2017-01-12] MEDS: IPRATROPIUM 0.5MG/ALBUTEROL 2.5MG INH SOL UD 3ML (DUONEB)(J7620) NEB SCH ×3 (01:17→14:00)
[2017-01-12] MEDS: ONDANSETRON 4MG/2ML VIAL (J2405) IV PRN (02:07)
[2017-01-12] MEDS: METOCLOPRAMIDE INJ 10MG/2ML VIAL (J2765) IV SCH ×2 (03:48→10:11)
[2017-01-12] MEDS ORDERED: NORCO, ANEXSIA 5/325MG TABLET (HYDROcodone/ACETAMINOPHEN) PO ONE (04:00)
[2017-01-12] MEDS ORDERED: PANTOPRAZOLE 40MG TAB (PROTONIX) PO ONE (04:00)
[2017-01-12] MEDS: TRIAMCINOLONE ACET 0.1% OINTMENT 80 GM TOP SCH ×2 (05:44→12:00)
[2017-01-12] MEDS: LEVOTHYROXINE 88MCG TABLET (0.088 MG) PO SCH (05:47)
[2017-01-12] MEDS: SLF 3 ML SYR IV SCH ×2 (05:47→12:03)
[2017-01-12 05:50] VITALS: BP 108/74
[2017-01-12 06:35] LABS: MEAN CORPUSCULAR HEMOGLOBIN 28.8 pg (27.0-33.0); MEAN CORPUSCULAR HGB CONC 33.7 g/dl (32.0-36.5); MEAN CORPUSCULAR VOLUME 85.6 fl (80.0-96.0); PLATELET COUNT, AUTOMATED 297 10^3/uL (150-450); RED CELL DISTRIBUTION WIDTH 13.4 % (11.5-14.5); WHITE BLOOD COUNT 17.3 10^3/uL (4.0-10.0)
[2017-01-12 06:55] LABS: ANION GAP 6 MEQ/L (8-16); BLOOD UREA NITROGEN 15 MG/DL (7-18); CALCIUM LEVEL 8.3 MG/DL (8.5-10.1); CARBON DIOXIDE LEVEL 29 MEQ/L (21-32); CHLORIDE LEVEL 105 MEQ/L (98-107); CREATININE FOR GFR 0.96 MG/DL (0.55-1.02); GLOMERULAR FILTRATION RATE > 60.0 (>51); GLUCOSE, FASTING 77 MG/DL (70-105); POTASSIUM SERUM 3.1 MEQ/L (3.5-5.1); SODIUM LEVEL 140 MEQ/L (136-145)
[2017-01-12] MEDS ORDERED: POTASSIUM CHLORIDE 10 MEQ SR TABLET PO ONE (07:30)
[2017-01-12 08:01] LABS: MAGNESIUM LEVEL 2.3 MG/DL (1.8-2.4)
[2017-01-12] MEDS: DULoxetine 30 MG CAP (CYMBALTA) PO SCH (08:14)
[2017-01-12] MEDS: CETIRIZINE (ZyrTEC) 10 MG TAB PO SCH (08:15)
[2017-01-12] MEDS: predniSONE 20 MG TAB PO SCH (08:15)
[2017-01-12] MEDS: GABAPENTIN 300 MG CAP PO SCH (08:15)
[2017-01-12] MEDS: NICOTINE 7 MG/24 HR TRANSDERMAL TD SCH (08:16)
[2017-01-12] MEDS: hydrOXYzine 50 MG TAB PO SCH (08:16)
[2017-01-12] MEDS: raNITIdine SYRUP 150 MG/10 ML UDC PO SCH (08:18)
[2017-01-12] MEDS ORDERED: HYDRO50TAB PO ×2 (10:12→10:24)
[2017-01-12] MEDS ORDERED: RANI15TA PO ×2 (10:12→10:24)
[2017-01-12] MEDS ORDERED: CETI10TA PO ×2 (10:12→10:24)
[2017-01-12] MEDS ORDERED: PRED20TA PO ×2 (10:12→10:24)
[2017-01-12] MEDS ORDERED: XARE20TA PO ×2 (10:12→10:24)
[2017-01-12] MEDS ORDERED: DIPHCR TOP ×2 (10:12→10:24)
[2017-01-12] MEDS ORDERED: NICO7PA TD (10:12)
[2017-01-12] MEDS ORDERED: NORC1TAB4 PO (10:19)
[2017-01-12] MEDS ORDERED: REGL10TA6 PO (10:56)
[2017-01-12 14:16] LABS: WEST NILE VIRUS ANTIBODY IgM Negative (Negative)
[2017-01-13] MEDS ORDERED: PANTOPRAZOLE 40MG TAB (PROTONIX) PO SCH (09:00)
--- NOTE | 2017-01-13 20:26 | DSES ---
DATE OF ADMISSION: 01/04/2017 DATE OF DISCHARGE: 01/12/2017 PRIMARY CARE PROVIDER: Patient's primary care provider is in [facility]. Arrangements are made for patient to follow with [facility]. INFECTIOUS DISEASE SPECIALIST: Dr. Trammell. NEUROLOGIST: Dr. Vazquez ALLERGY SANDER MACHINE: Dr. Corey FINAL DIAGNOSES: 1. Angioedema, allergic reaction. 2. Pulmonary embolism. 3. Multiple sclerosis. 4. Weakness. 5. Hypothyroidism. 6. Neuropathy. 7. Dysphagia. HISTORY OF PRESENT ILLNESS: This is a 56-year-old female patient with underlying medical history of multiple sclerosis, hypothyroidism, gastroesophageal reflux disease (GERD), who was admitted under hospitalist service on 12/31/2016, discharged on 01/02/2017 with angioedema, urticaria of the entire body secondary to allergic exposure while visiting her grandchildren at [facility] [employer] [facility] [place] on Sunday. The patient was admitted, placed on intravenous (IV) Solu-Medrol after receiving Decadron in the emergency room and given Benadryl and steroid with improvement of the maculopapular rash. Patient had been sent home and was found to have worsening symptoms and presented again on 01/03/2017. Patient stated that she was initially noticing her lips swelling up. Denied any respiratory distress but was having difficulty swallowing. Had no stridor on examination in the emergency room and on admission and was noticed to have maculopapular rash in upper body and lower extremities. Reported upper lower extremity swelling, lips swollen, and severe lower extremity pain. Hospitalist was consulted for admission. HOSPITAL COURSE: Patient was admitted to the hospital, initially given steroids, nebulizer treatment, Atarax, and Benadryl. Infectious disease was consulted as well as neurology given patient's multiple sclerosis. MRI of the cervical spine, thoracic spine, and MRA of the brain were done. Ultrasound Doppler of upper and lower extremities was done, negative for deep vein thrombosis (DVT). CT angiogram is suspicious for pulmonary embolism (PE). Upon further questioning, patient stated that she has had multiple PEs before but had been taken off of Xarelto, and she does not know why. V/Q study for confirmation shows patient does have PE. Subsequently patient was started on Xarelto. Denies history of bleeding. Physical therapy has been ordered. Initially on clear liquid diet, later progressively advanced. CT of the abdomen was done. Unfortunately, barium esophagram or upper gastrointestinal (GI) series cannot be done given the lack of availability of fluoroscopy suite, and patient cannot tolerate a gastric emptying study due to egg allergy, but given patient's symptoms have improved, arrangements are made for patient to followup with local primary care provider as outpatient as well as in urgent appointment to followup with Dr. Corey. Patient discussed with infectious disease, Dr. Trammell, and neurology, Dr. Vazquez, who agree with current management. VITAL SIGNS: Temperature 98.7, pulse 63, respirations 16, blood pressure 108/74, pulse oximetry 95% on room air. GENERAL: Patient alert and oriented times three in no acute distress. HEENT: Normocephalic, atraumatic. No tongue swelling. No lip swelling. NECK: Supple. Trachea midline. CARDIAC: Regular rate and rhythm. PULMONARY: Bilaterally clear to auscultation. ABDOMEN: Soft and nontender. Positive bowel sounds. EXTREMITIES: No clubbing or cyanosis. Trace bilateral lower extremity edema. LABORATORY DATA: WBC 17.3, hemoglobin and hematocrit 13.4/39.8, platelets 297. Chemistry: Sodium 140, potassium 3.1, chloride 105, bicarbonate 29, BUN 15, creatinine 0.96, magnesium 2.3, potassium is supplemented. DISCHARGE MEDICATIONS: - Eden 5/325 mg by mouth every 6 hours as needed - Zyrtec 10 mg by mouth every 24 hours - Benadryl cream every 6 hours as needed - hydroxyzine 50 mg by mouth twice a day - Reglan 10 mg by mouth every 6 hours as needed - nicotine patch 7 mg transdermal daily - prednisone 40 mg by mouth daily - ranitidine 150 mg by mouth twice a day - Xarelto 20 mg by mouth daily - ProAir inhalation as needed - Copaxone 20 mg subcutaneous every evening - Cymbalta 60 mg by mouth daily - Breo inhalation daily - gabapentin 600 mg by mouth three times a day - Synthroid 88 mcg by mouth daily - Protonix 40 mg by mouth daily - amantadine 2 mg by mouth twice a day - Seroquel has been held. DISCHARGE INSTRUCTIONS: Patient is instructed to followup with local primary care provider in 7 days and followup with allergy cellar hand on Sunday. Furthermore, patient is instructed to observe a soft diet. Return to the hospital if symptoms worsen. Consider further gastroenterology workup for dysphagia. Patient currently is tolerating her diet in no acute distress, comfortable. Ready for discharge for further care as outpatient.
== END 2017-01-12 14:05 | disposition home or self-care (01) | DRG 915 ==
LOC: M ED 13:02 → M ED INP 16:20 → M PCU 18:33 → OBSVTOIN 01-04 16:59 → M MSPAV 01-11 14:13
PROVIDERS: ADMIT General Practice; ATTEND Hospitalist
DX: T78.3XXA Angioneurotic edema, initial encounter (principal); I26.99 Other pulmonary embolism without acute cor pulmonale; G37.3 Acute transverse myelitis in demyelinating disease of central nervous system; G35 Multiple sclerosis; E03.9 Hypothyroidism, unspecified; K21.9 Gastro-esophageal reflux disease without esophagitis; X58.XXXA Exposure to other specified factors, initial encounter; R20.0 Anesthesia of skin; R53.1 Weakness; R11.0 Nausea; F32.9 Major depressive disorder, single episode, unspecified; R13.10 Dysphagia, unspecified; Z90.49 Acquired absence of other specified parts of digestive tract; Y92.248 Other public administrative building as the place of occurrence of the external cause; Z79.899 Other long term (current) drug therapy; W55.89XA Other contact with other mammals, initial encounter; Y99.8 Other external cause status

== ENCOUNTER → 2017-05-17 | Outpatient (REF) | payer MEDICARE ==
[2017-05-17 15:43] LABS: BASO # 0.1 10^3/uL (0.0-0.2); BASO % 0.6 % (0.0-1.0); EOS # 0.3 10^3/uL (0.0-0.50); EOS % 3.2 % (0.0-3.0); HEMATOCRIT 41.4 % (36.0-47.0); HEMOGLOBIN 13.9 g/dl (12.0-16.0); IMMATURE GRANULOCYTE % 0.2 % (0-3.0); LYMPH # 2.7 10^3/uL (1.5-4.5); LYMPH % 31.4 % (24.0-44.0); MEAN CORPUSCULAR HEMOGLOBIN 29.3 pg (27.0-33.0); MEAN CORPUSCULAR HGB CONC 33.6 g/dl (32.0-36.5); MEAN CORPUSCULAR VOLUME 87.3 fl (80.0-96.0); MONO # 0.6 10^3/uL (0.0-0.8); MONO % 7.1 % (0.0-5.0); NEUTROPHILS # 4.9 10^3/uL (1.8-7.7); NEUTROPHILS % 57.5 % (36.0-66.0); PLATELET COUNT, AUTOMATED 227 10^3/uL (150-450); RED BLOOD COUNT 4.74 10^6/uL (4.00-5.40); WHITE BLOOD COUNT 8.4 10^3/uL (4.0-10.0)
[2017-05-17 16:21] LABS: ANION GAP 7 MEQ/L (8-16); BLOOD UREA NITROGEN 10 MG/DL (7-18); C REACTIVE PROTEIN QUANTITATIV 0.36 MG/DL (0.00-0.30); CARBON DIOXIDE LEVEL 28 MEQ/L (21-32); CHLORIDE LEVEL 109 MEQ/L (98-107); GLOMERULAR FILTRATION RATE 55.1 (>51); GLUCOSE, FASTING 90 MG/DL (70-100); PHOSPHORUS LEVEL 3.1 MG/DL (2.5-4.9); POTASSIUM SERUM 4.4 MEQ/L (3.5-5.1); SODIUM LEVEL 144 MEQ/L (136-145)
== END ==
LOC: M SFHCPLAZ 14:24
DX: M54.41 Lumbago with sciatica, right side (principal); Z79.899 Other long term (current) drug therapy
CPT/HCPCS: 80069

== ENCOUNTER → 2017-06-01 | Outpatient (CLI) | payer MEDICARE | LOC: M PAIN 15:30 | DX: M54.5 Low back pain (principal); G89.29 Other chronic pain; M51.16 Intervertebral disc disorders with radiculopathy, lumbar region; R10.30 Lower abdominal pain, unspecified; G35 Multiple sclerosis; F32.9 Major depressive disorder, single episode, unspecified; E03.9 Hypothyroidism, unspecified; J45.909 Unspecified asthma, uncomplicated; Z79.899 Other long term (current) drug therapy; Z87.891 Personal history of nicotine dependence; Z88.0 Allergy status to penicillin; Z88.1 Allergy status to other antibiotic agents | CPT/HCPCS: G0463 ==

== ENCOUNTER 2017-06-23 09:55 | Emergency (ER) | payer MEDICARE ==
[2017-06-23] MEDS: NORCO, ANEXSIA 5/325MG TABLET (HYDROcodone/ACETAMINOPHEN) PO (11:01)
[2017-06-23] MEDS: diazePAM 5 MG TAB PO (11:02)
== END 2017-06-23 11:53 | disposition home or self-care (01) ==
LOC: M ED 09:55
DX: M54.5 Low back pain (principal); G89.29 Other chronic pain; G35 Multiple sclerosis; J45.909 Unspecified asthma, uncomplicated; E03.9 Hypothyroidism, unspecified; Z79.01 Long term (current) use of anticoagulants; Z79.890 Hormone replacement therapy; Z79.899 Other long term (current) drug therapy; Z79.51 Long term (current) use of inhaled steroids; Z86.711 Personal history of pulmonary embolism; Z87.891 Personal history of nicotine dependence; Z98.890 Other specified postprocedural states; Z88.0 Allergy status to penicillin; Z88.1 Allergy status to other antibiotic agents
CPT/HCPCS: 99283

== ENCOUNTER 2017-11-13 11:16 | Emergency (ER) | payer MEDICARE ==
[2017-11-13] MEDS: NS 1,000 ML IV (12:00)
[2017-11-13] MEDS: METOCLOPRAMIDE INJ 10MG/2ML VIAL (J2765) IV (12:25)
[2017-11-13] MEDS: MORPHINE 4 MG/ML 1ML VIAL/SYRINGE (J2270) IV ×2 (12:26→13:29)
[2017-11-13 12:37] LABS: HEMATOCRIT 43.2 % (36.0-47.0); HEMOGLOBIN 14.7 g/dl (12.0-15.5); MEAN CORPUSCULAR HEMOGLOBIN 29.7 pg (27.0-33.0); MEAN CORPUSCULAR VOLUME 87.3 fl (80.0-96.0); PLATELET COUNT, AUTOMATED 257 10^3/uL (150-450); RED BLOOD COUNT 4.95 10^6/uL (4.00-5.40); WHITE BLOOD COUNT 11.5 10^3/uL (4.0-10.0)
[2017-11-13 12:38] LABS: ADD MANUAL DIFFER YES; BASO % 0.4 % (0.0-1.0); DIFF SLIDE NUMBER 279; EOS # 2.9 10^3/uL (0.0-0.50); IMMATURE GRANULOCYTE # 0.1 10^3/uL (0-0); IMMATURE GRANULOCYTE % 1.1 % (0-3.0); LYMPH # 2.1 10^3/uL (1.5-4.5); LYMPH % 18.3 % (24.0-44.0); MONO # 0.5 10^3/uL (0.0-0.8); MONO % 4.6 % (0.0-5.0); NEUTROPHILS # 5.7 10^3/uL (1.8-7.7); NEUTROPHILS % 50.3 % (36.0-66.0); POSITIVE DIFF POS FLAG
[2017-11-13 13:05] LABS: ALBUMIN 3.7 GM/DL (3.2-5.2); ALKALINE PHOSPHATASE 77 U/L (45-117); ALT/SGPT 15 U/L (12-78); ANION GAP 8 MEQ/L (8-16); AST/SGOT 13 U/L (7-37); BILIRUBIN,DIRECT < 0.1 MG/DL (0.0-0.2); BILIRUBIN,TOTAL 0.3 MG/DL (0.2-1.0); BLOOD UREA NITROGEN 10 MG/DL (7-18); CALCIUM LEVEL 9.5 MG/DL (8.5-10.1); CARBON DIOXIDE LEVEL 24 MEQ/L (21-32); CHLORIDE LEVEL 108 MEQ/L (98-107); CREATININE FOR GFR 0.78 MG/DL (0.55-1.30); GLOMERULAR FILTRATION RATE > 60.0 (>51); GLUCOSE, FASTING 94 MG/DL (70-100); LIPASE 216 U/L (73-393); POTASSIUM SERUM 3.7 MEQ/L (3.5-5.1); SODIUM LEVEL 140 MEQ/L (136-145); TOTAL PROTEIN 7.2 GM/DL (6.4-8.2)
[2017-11-13] MEDS ORDERED: ISOVUE-370 76% 100ML VIAL (Q9967) As Ordered (13:09)
[2017-11-13 14:00] LABS: KETONE, URINE AUTO RFX TRACE mg/dL (NEGATIVE); LEUKOCYTE ESTERASE UR AUTO RFX NEGATIVE (NEGATIVE); MUCUS, URINE RFX SMALL (NEGATIVE); NITRITE, URINE AUTO RFX NEGATIVE (NEGATIVE); RBC, URINE AUTO RFX 1 /HPF (0-3); SPECIFIC GRAVITY UR AUTO RFX 1.015 (1.002-1.035); SQUAM EPITHELIAL CELL UR AURFX 0 /HPF (0-6); WBC, URINE AUTO RFX 1 /HPF (0-3)
[2017-11-13 14:03] LABS: ATYPICAL LYMPH 2 % (0-5); EOSINOPHILS 25 % (0-5); LYMPHOCYTES 9 % (16-52); MONOCYTES 5 % (0-8); NEUTROPHILS 59 % (35-75); PLATELET ESTIMATE NORMAL (NORMAL)
[2017-11-13] MEDS: ONDANSETRON 4MG/2ML VIAL (J2405) IV (14:03)
[2017-11-13 14:51] LABS: ALBUMIN/GLOBULIN RATIO 1.06 (1.00-1.93)
== END 2017-11-13 14:42 | disposition home or self-care (01) ==
LOC: M ED 11:16
DX: K57.32 Diverticulitis of large intestine without perforation or abscess without bleeding (principal); R11.10 Vomiting, unspecified; R19.7 Diarrhea, unspecified; R50.9 Fever, unspecified; G35 Multiple sclerosis; K21.9 Gastro-esophageal reflux disease without esophagitis; J45.909 Unspecified asthma, uncomplicated; Z86.718 Personal history of other venous thrombosis and embolism; Z86.711 Personal history of pulmonary embolism; M54.9 Dorsalgia, unspecified; E06.3 Autoimmune thyroiditis; F32.9 Major depressive disorder, single episode, unspecified; F41.9 Anxiety disorder, unspecified; Z88.0 Allergy status to penicillin; Z88.1 Allergy status to other antibiotic agents; Z79.899 Other long term (current) drug therapy; Z79.01 Long term (current) use of anticoagulants; Z87.891 Personal history of nicotine dependence
CPT/HCPCS: J2270

== ENCOUNTER 2017-12-02 13:07 | Inpatient (IN) | payer MEDICARE ==
[2017-12-02 13:53] LABS: HEMATOCRIT 43.7 % (36.0-47.0); HEMOGLOBIN 14.8 g/dl (12.0-15.5); MEAN CORPUSCULAR HGB CONC 33.9 g/dl (32.0-36.5); MEAN CORPUSCULAR VOLUME 88.5 fl (80.0-96.0); PLATELET COUNT, AUTOMATED 264 10^3/uL (150-450); RED BLOOD COUNT 4.94 10^6/uL (4.00-5.40); RED CELL DISTRIBUTION WIDTH 12.9 % (11.5-14.5); WHITE BLOOD COUNT 10.1 10^3/uL (4.0-10.0)
[2017-12-02 13:54] LABS: ADD MANUAL DIFFER YES; DIFF SLIDE NUMBER 118; POSITIVE DIFF POS FLAG
[2017-12-02 14:05] LABS: KETONE, URINE AUTO RFX NEGATIVE (NEGATIVE); LEUKOCYTE ESTERASE UR AUTO RFX NEGATIVE (NEGATIVE); MUCUS, URINE RFX MODERATE (NEGATIVE); NITRITE, URINE AUTO RFX NEGATIVE (NEGATIVE); RBC, URINE AUTO RFX 6 /HPF (0-3); SPECIFIC GRAVITY UR AUTO RFX 1.024 (1.002-1.035); SQUAM EPITHELIAL CELL UR AURFX 1 /HPF (0-6); WBC, URINE AUTO RFX 1 /HPF (0-3)
[2017-12-02 14:14] LABS: ATYPICAL LYMPH 4 % (0-5); EOSINOPHILS 33 % (0-5); LYMPHOCYTES 24 % (16-52); MONOCYTES 7 % (0-8); NEUTROPHILS 32 % (35-75)
[2017-12-02 14:15] LABS: PLATELET ESTIMATE NORMAL (NORMAL)
[2017-12-02 14:28] LABS: ANION GAP 7 MEQ/L (8-16); BLOOD UREA NITROGEN 8 MG/DL (7-18); CALCIUM LEVEL 9.2 MG/DL (8.5-10.1); CARBON DIOXIDE LEVEL 27 MEQ/L (21-32); CHLORIDE LEVEL 107 MEQ/L (98-107); CREATININE FOR GFR 0.96 MG/DL (0.55-1.30); GLOMERULAR FILTRATION RATE > 60.0 (>51); GLUCOSE, FASTING 93 MG/DL (70-100); POTASSIUM SERUM 4.1 MEQ/L (3.5-5.1); SODIUM LEVEL 141 MEQ/L (136-145)
[2017-12-02] MEDS ORDERED: ONDANSETRON 4MG/2ML VIAL (J2405) As Ordered (14:58)
[2017-12-02] MEDS: ONDANSETRON 4MG/2ML VIAL (J2405) IV ×2 (15:01→17:20)
[2017-12-02] MEDS: MORPHINE 4 MG/ML 1ML VIAL/SYRINGE (J2270) IV ×3 (15:05→21:01)
[2017-12-02] MEDS: NS 1,000 ML IV (15:09)
[2017-12-02 15:19] LABS: ALBUMIN 3.9 GM/DL (3.2-5.2); ALBUMIN/GLOBULIN RATIO 1.39 (1.00-1.93); ALKALINE PHOSPHATASE 64 U/L (45-117); ALT/SGPT 24 U/L (12-78); AST/SGOT 17 U/L (7-37); BILIRUBIN,TOTAL 0.5 MG/DL (0.2-1.0); LIPASE 193 U/L (73-393); TOTAL PROTEIN 6.7 GM/DL (6.4-8.2)
[2017-12-02] MEDS: GASTROGRAFIN SOLUTION 30ML PO ×2 (15:27→16:00)
[2017-12-02 16:06] LABS: CK-MB VALUE MASS < 1.0 NG/ML (<3.6); CPK CREATINE PHOSPHOKINASE 44 U/L (26-192); MB/CK RELATIVE INDEX 2.27 (< OR =4); TROPONIN I < 0.02 NG/ML (< 0.10)
[2017-12-02] MEDS ORDERED: ISOVUE-370 76% 100ML VIAL (Q9967) As Ordered (16:25)
[2017-12-02] MEDS: PROMETHAZINE 25 MG TAB PO (18:30)
[2017-12-02 18:51] LABS: AMPHETAMINES LEVEL URINE NEGATIVE (NEGATIVE); BARBITURATES URINE NEGATIVE (NEGATIVE); BENZODIAZEPINES URINE NEGATIVE (NEGATIVE); CANNABINOIDS URINE NEGATIVE (NEGATIVE); COCAINE METABOLITE URINE NEGATIVE (NEGATIVE); METHADONE URINE NEGATIVE (NEGATIVE); OPIATES URINE POSITIVE (NEGATIVE); PHENCYCLIDINE URINE NEGATIVE (NEGATIVE)
[2017-12-02] MEDS: LR 1,000 ML IV (20:53)
[2017-12-02] MEDS ORDERED: COPAXONE 20 MG/ML SC (21:00)
[2017-12-02 21:47] LABS: C REACTIVE PROTEIN QUANTITATIV < 0.30 MG/DL (0.00-0.30); CK-MB VALUE MASS < 1.0 NG/ML (<3.6); CPK CREATINE PHOSPHOKINASE 38 U/L (26-192); MB/CK RELATIVE INDEX 2.63 (< OR =4); TROPONIN I < 0.02 NG/ML (< 0.10)
[2017-12-02] MEDS: GABAPENTIN 300 MG CAP PO (23:15)
[2017-12-02] MEDS: traZODone 100 MG TAB PO (23:15)
[2017-12-02] MEDS: RIVAROXABAN 20 MG TAB (XARELTO) PO (23:16)
[2017-12-02] MEDS: QUEtiapine FUMARATE 100 MG TAB PO (23:16)
[2017-12-03] MEDS: MORPHINE 4 MG/ML 1ML VIAL/SYRINGE (J2270) IV ×5 (04:31→20:56)
[2017-12-03] MEDS: PROMETHAZINE INJ 25 MG/ML VIAL (J2550) IV ×3 (04:31→20:56)
[2017-12-03] MEDS: LR 1,000 ML IV ×3 (04:32→17:11)
[2017-12-03 07:52] LABS: BASO # 0.1 10^3/uL (0.0-0.2); BASO % 0.7 % (0.0-1.0); EOS # 2.1 10^3/uL (0.0-0.50); IMMATURE GRANULOCYTE % 0.3 % (0-3.0); LYMPH # 2.3 10^3/uL (1.5-4.5); LYMPH % 34.5 % (24.0-44.0); MEAN CORPUSCULAR HEMOGLOBIN 29.8 pg (27.0-33.0); MEAN CORPUSCULAR HGB CONC 32.5 g/dl (32.0-36.5); MEAN CORPUSCULAR VOLUME 91.7 fl (80.0-96.0); MONO # 0.4 10^3/uL (0.0-0.8); MONO % 5.9 % (0.0-5.0); NEUTROPHILS # 1.8 10^3/uL (1.8-7.7); NEUTROPHILS % 27.3 % (36.0-66.0); PLATELET COUNT, AUTOMATED 224 10^3/uL (150-450); RED BLOOD COUNT 4.36 10^6/uL (4.00-5.40); RED CELL DISTRIBUTION WIDTH 12.9 % (11.5-14.5); WHITE BLOOD COUNT 6.8 10^3/uL (4.0-10.0)
[2017-12-03 08:24] LABS: EOS % 31.3 % (0.0-3.0); POSITIVE DIFF POS FLAG
[2017-12-03 08:27] LABS: ALBUMIN 3.2 GM/DL (3.2-5.2); ALBUMIN/GLOBULIN RATIO 1.39 (1.00-1.93); ALKALINE PHOSPHATASE 54 U/L (45-117); ALT/SGPT 24 U/L (12-78); ANION GAP 5 MEQ/L (8-16); AST/SGOT 20 U/L (7-37); BILIRUBIN,TOTAL 0.7 MG/DL (0.2-1.0); BLOOD UREA NITROGEN 7 MG/DL (7-18); C REACTIVE PROTEIN QUANTITATIV < 0.30 MG/DL (0.00-0.30); CALCIUM LEVEL 8.7 MG/DL (8.5-10.1); CARBON DIOXIDE LEVEL 28 MEQ/L (21-32); CHLORIDE LEVEL 108 MEQ/L (98-107); CREATININE FOR GFR 0.86 MG/DL (0.55-1.30); GLOMERULAR FILTRATION RATE > 60.0 (>51); GLUCOSE, FASTING 82 MG/DL (70-100); MAGNESIUM LEVEL 2.4 MG/DL (1.8-2.4); SODIUM LEVEL 141 MEQ/L (136-145); TOTAL PROTEIN 5.5 GM/DL (6.4-8.2)
[2017-12-03] MEDS ORDERED: BREO INH (09:00)
[2017-12-03] MEDS ORDERED: PANTOPRAZOLE 40MG TAB (PROTONIX) PO (09:00)
[2017-12-03] MEDS: tiZANidine 4 MG TAB PO (09:22)
[2017-12-03] MEDS: LEVOTHYROXINE 88MCG TABLET (0.088 MG) PO (09:22)
[2017-12-03] MEDS: GABAPENTIN 300 MG CAP PO ×4 (09:23→20:57)
[2017-12-03] MEDS: DULoxetine 30 MG CAP (CYMBALTA) PO (09:23)
[2017-12-03] MEDS: PANTOPRAZOLE 40MG INJ (PROTONIX) (C9113) IV (09:23)
[2017-12-03] MEDS: INFLUENZA QUADRIVALENT PF VACCINE 0.5ML SYRINGE (90686) IM (09:24)
[2017-12-03] MEDS ORDERED: PROPOFOL 200 MG/20 ML VIAL As Ordered (12:32)
[2017-12-03] MEDS ORDERED: LIDOCAINE 2% INJ 100 MG/5 ML SDV (FOR ANES.) As Ordered (12:32)
[2017-12-03] MEDS ORDERED: fentaNYL 100 MCG/2 ML INJECTION (J3010) As Ordered (12:33)
[2017-12-03] MEDS ORDERED: MIDAZOLAM INJ 2 MG/2 ML VIAL (J2250) As Ordered (12:47)
[2017-12-03] MEDS ORDERED: ePHEDrine SULFATE 25 MG/5 ML(5MG/ML) SYRINGE As Ordered (13:10)
[2017-12-03] MEDS ORDERED: ONDANSETRON 4MG/2ML VIAL (J2405) IV (13:45)
[2017-12-03] MEDS: DICYCLOMINE 10 MG CAP PO ×3 (14:18→23:47)
[2017-12-03] MEDS: SUCRALFATE 1 GM TAB PO ×3 (14:18→20:57)
[2017-12-03] MEDS: traZODone 100 MG TAB PO (20:56)
[2017-12-03] MEDS: RIVAROXABAN 20 MG TAB (XARELTO) PO (20:57)
[2017-12-03] MEDS: QUEtiapine FUMARATE 100 MG TAB PO (21:08)
[2017-12-04] MEDS: MORPHINE 4 MG/ML 1ML VIAL/SYRINGE (J2270) IV ×2 (00:22→05:07)
[2017-12-04] MEDS: LR 1,000 ML IV ×2 (02:37→12:18)
[2017-12-04] MEDS: DICYCLOMINE 10 MG CAP PO ×3 (05:01→18:20)
[2017-12-04] MEDS: PROMETHAZINE INJ 25 MG/ML VIAL (J2550) IV (05:07)
[2017-12-04] MEDS: ACETAMINOPHEN TAB 650MG DOSE (2X325MG) PO ×2 (09:38→11:08)
[2017-12-04] MEDS: GABAPENTIN 300 MG CAP PO ×4 (09:38→20:12)
[2017-12-04] MEDS: LEVOTHYROXINE 88MCG TABLET (0.088 MG) PO (09:38)
[2017-12-04] MEDS: SUCRALFATE 1 GM TAB PO ×4 (09:39→20:12)
[2017-12-04] MEDS: PANTOPRAZOLE 40MG TAB (PROTONIX) PO ×2 (09:39→20:12)
[2017-12-04] MEDS: tiZANidine 4 MG TAB PO (09:39)
[2017-12-04] MEDS: DULoxetine 30 MG CAP (CYMBALTA) PO (09:40)
[2017-12-04 09:58] LABS: BASO % 0.7 % (0.0-1.0); EOS # 0.8 10^3/uL (0.0-0.50); EOS % 13.3 % (0.0-3.0); HEMATOCRIT 38.2 % (36.0-47.0); HEMOGLOBIN 12.5 g/dl (12.0-15.5); IMMATURE GRANULOCYTE % 0.2 % (0-3.0); LYMPH # 1.4 10^3/uL (1.5-4.5); LYMPH % 22.4 % (24.0-44.0); MEAN CORPUSCULAR HEMOGLOBIN 29.7 pg (27.0-33.0); MEAN CORPUSCULAR HGB CONC 32.7 g/dl (32.0-36.5); MEAN CORPUSCULAR VOLUME 90.7 fl (80.0-96.0); MONO # 0.4 10^3/uL (0.0-0.8); MONO % 6.4 % (0.0-5.0); NEUTROPHILS # 3.5 10^3/uL (1.8-7.7); PLATELET COUNT, AUTOMATED 206 10^3/uL (150-450); RED BLOOD COUNT 4.21 10^6/uL (4.00-5.40); RED CELL DISTRIBUTION WIDTH 12.9 % (11.5-14.5); WHITE BLOOD COUNT 6.1 10^3/uL (4.0-10.0)
[2017-12-04 11:16] LABS: ALBUMIN/GLOBULIN RATIO 1.25 (1.00-1.93); ALKALINE PHOSPHATASE 53 U/L (45-117); ALT/SGPT 28 U/L (12-78); ANION GAP 9 MEQ/L (8-16); AST/SGOT 23 U/L (7-37); BILIRUBIN,TOTAL 0.6 MG/DL (0.2-1.0); BLOOD UREA NITROGEN 4 MG/DL (7-18); CALCIUM LEVEL 8.2 MG/DL (8.5-10.1); CARBON DIOXIDE LEVEL 27 MEQ/L (21-32); CHLORIDE LEVEL 106 MEQ/L (98-107); CREATININE FOR GFR 1.04 MG/DL (0.55-1.30); GLOMERULAR FILTRATION RATE 58.6 (>51); GLUCOSE, FASTING 86 MG/DL (70-100); POTASSIUM SERUM 4.1 MEQ/L (3.5-5.1); SODIUM LEVEL 142 MEQ/L (136-145); TOTAL PROTEIN 5.4 GM/DL (6.4-8.2)
[2017-12-04] MEDS: KETOROLAC 30 MG/ML VIAL (J1885) IV ×2 (18:23→20:47)
[2017-12-04] MEDS: traZODone 100 MG TAB PO (20:12)
[2017-12-04] MEDS: RIVAROXABAN 20 MG TAB (XARELTO) PO (20:12)
[2017-12-04] MEDS: QUEtiapine FUMARATE 100 MG TAB PO (20:47)
[2017-12-04] MEDS: DOCUSATE SODIUM 100 MG CAP PO (20:47)
[2017-12-04] MEDS: SENNA 8.6 MG TAB (SENOKOT) PO (20:47)
[2017-12-05] MEDS: DICYCLOMINE 10 MG CAP PO ×5 (01:18→22:57)
[2017-12-05] MEDS: LR 1,000 ML IV ×2 (01:19→08:51)
[2017-12-05] MEDS: NIFEdipine 10 MG CAP PO ×3 (06:00→21:38)
[2017-12-05 07:18] LABS: BASO # 0.1 10^3/uL (0.0-0.2); EOS # 1.1 10^3/uL (0.0-0.50); HEMATOCRIT 39.9 % (36.0-47.0); HEMOGLOBIN 13.1 g/dl (12.0-15.5); LYMPH # 1.6 10^3/uL (1.5-4.5); MEAN CORPUSCULAR HEMOGLOBIN 29.6 pg (27.0-33.0); MEAN CORPUSCULAR HGB CONC 32.8 g/dl (32.0-36.5); MEAN CORPUSCULAR VOLUME 90.1 fl (80.0-96.0); MONO # 0.5 10^3/uL (0.0-0.8); MONO % 10.7 % (0.0-5.0); NEUTROPHILS # 1.6 10^3/uL (1.8-7.7); PLATELET COUNT, AUTOMATED 208 10^3/uL (150-450); RED BLOOD COUNT 4.43 10^6/uL (4.00-5.40); RED CELL DISTRIBUTION WIDTH 12.8 % (11.5-14.5); WHITE BLOOD COUNT 4.9 10^3/uL (4.0-10.0)
[2017-12-05 07:38] LABS: ALBUMIN/GLOBULIN RATIO 1.11 (1.00-1.93); ALKALINE PHOSPHATASE 53 U/L (45-117); ALT/SGPT 34 U/L (12-78); ANION GAP 7 MEQ/L (8-16); AST/SGOT 30 U/L (7-37); BILIRUBIN,TOTAL 0.6 MG/DL (0.2-1.0); BLOOD UREA NITROGEN 5 MG/DL (7-18); CALCIUM LEVEL 8.7 MG/DL (8.5-10.1); CARBON DIOXIDE LEVEL 28 MEQ/L (21-32); CHLORIDE LEVEL 112 MEQ/L (98-107); CREATININE FOR GFR 0.85 MG/DL (0.55-1.30); GLOMERULAR FILTRATION RATE > 60.0 (>51); GLUCOSE, FASTING 85 MG/DL (70-100); MAGNESIUM LEVEL 2.2 MG/DL (1.8-2.4); SODIUM LEVEL 147 MEQ/L (136-145); TOTAL PROTEIN 5.7 GM/DL (6.4-8.2)
[2017-12-05 07:56] LABS: EOS % 23.3 % (0.0-3.0); POSITIVE DIFF POS FLAG
[2017-12-05] MEDS: SENNA 8.6 MG TAB (SENOKOT) PO (08:44)
[2017-12-05] MEDS: SUCRALFATE 1 GM TAB PO ×4 (08:44→20:35)
[2017-12-05] MEDS: LEVOTHYROXINE 88MCG TABLET (0.088 MG) PO (08:45)
[2017-12-05] MEDS: GABAPENTIN 300 MG CAP PO ×4 (08:45→20:36)
[2017-12-05] MEDS: PANTOPRAZOLE 40MG TAB (PROTONIX) PO ×2 (08:45→20:36)
[2017-12-05] MEDS: DULoxetine 30 MG CAP (CYMBALTA) PO (08:45)
[2017-12-05] MEDS: DOCUSATE SODIUM 100 MG CAP PO ×2 (08:46→20:36)
[2017-12-05] MEDS: tiZANidine 4 MG TAB PO (08:46)
[2017-12-05] MEDS: traMADol 50 MG TAB PO ×2 (08:57→14:20)
[2017-12-05] MEDS: PERCOCET 5MG/325MG TAB PO ×2 (16:47→22:58)
[2017-12-05] MEDS: AMITRIPTYLINE 25 MG TAB PO (20:35)
[2017-12-05] MEDS: QUEtiapine FUMARATE 100 MG TAB PO (20:36)
[2017-12-05] MEDS: traZODone 100 MG TAB PO (20:36)
[2017-12-05] MEDS: SENOKOT S TAB PO (20:36)
[2017-12-05] MEDS: D5W/0.45% SODIUM CHLORIDE 1,000 ML IV (21:39)
[2017-12-06] MEDS: DICYCLOMINE 10 MG CAP PO ×3 (06:18→21:22)
[2017-12-06] MEDS: PERCOCET 5MG/325MG TAB PO ×3 (06:19→21:01)
[2017-12-06] MEDS: NIFEdipine 10 MG CAP PO ×3 (06:20→22:23)
[2017-12-06 07:02] LABS: BASO % 0.5 % (0.0-1.0); EOS # 0.9 10^3/uL (0.0-0.50); EOS % 10.8 % (0.0-3.0); HEMATOCRIT 37.8 % (36.0-47.0); HEMOGLOBIN 12.3 g/dl (12.0-15.5); IMMATURE GRANULOCYTE % 0.2 % (0-3.0); LYMPH # 2.1 10^3/uL (1.5-4.5); LYMPH % 24.4 % (24.0-44.0); MEAN CORPUSCULAR HEMOGLOBIN 29.7 pg (27.0-33.0); MEAN CORPUSCULAR HGB CONC 32.5 g/dl (32.0-36.5); MEAN CORPUSCULAR VOLUME 91.3 fl (80.0-96.0); MONO # 0.5 10^3/uL (0.0-0.8); MONO % 5.6 % (0.0-5.0); NEUTROPHILS % 58.5 % (36.0-66.0); PLATELET COUNT, AUTOMATED 201 10^3/uL (150-450); RED BLOOD COUNT 4.14 10^6/uL (4.00-5.40); RED CELL DISTRIBUTION WIDTH 12.7 % (11.5-14.5); WHITE BLOOD COUNT 8.6 10^3/uL (4.0-10.0)
[2017-12-06 07:24] LABS: ALBUMIN 2.9 GM/DL (3.2-5.2); ALBUMIN/GLOBULIN RATIO 1.12 (1.00-1.93); ALKALINE PHOSPHATASE 52 U/L (45-117); ALT/SGPT 50 U/L (12-78); ANION GAP 8 MEQ/L (8-16); AST/SGOT 43 U/L (7-37); BILIRUBIN,TOTAL 0.4 MG/DL (0.2-1.0); BLOOD UREA NITROGEN 4 MG/DL (7-18); CALCIUM LEVEL 8.3 MG/DL (8.5-10.1); CARBON DIOXIDE LEVEL 28 MEQ/L (21-32); CHLORIDE LEVEL 109 MEQ/L (98-107); CREATININE FOR GFR 0.99 MG/DL (0.55-1.30); GLOMERULAR FILTRATION RATE > 60.0 (>51); GLUCOSE, FASTING 94 MG/DL (70-100); POTASSIUM SERUM 3.7 MEQ/L (3.5-5.1); SODIUM LEVEL 145 MEQ/L (136-145); TOTAL PROTEIN 5.5 GM/DL (6.4-8.2)
[2017-12-06] MEDS: D5W/0.45% SODIUM CHLORIDE 1,000 ML IV (08:56)
[2017-12-06] MEDS: LEVOTHYROXINE 88MCG TABLET (0.088 MG) PO (09:05)
[2017-12-06] MEDS: DOCUSATE SODIUM 100 MG CAP PO ×2 (10:02→22:20)
[2017-12-06] MEDS: GABAPENTIN 300 MG CAP PO ×4 (10:02→22:21)
[2017-12-06] MEDS: SUCRALFATE 1 GM TAB PO ×4 (10:02→22:21)
[2017-12-06] MEDS: PANTOPRAZOLE 40MG TAB (PROTONIX) PO ×2 (10:02→22:21)
[2017-12-06] MEDS: SENNA 8.6 MG TAB (SENOKOT) PO (10:03)
[2017-12-06] MEDS: SENOKOT S TAB PO ×2 (10:03→22:20)
[2017-12-06] MEDS: DULoxetine 30 MG CAP (CYMBALTA) PO (10:03)
[2017-12-06] MEDS: tiZANidine 4 MG TAB PO (10:03)
[2017-12-06] MEDS: ISOVUE-300 61% 50ML VIAL (Q9967) As Ordered ×2 (13:00→14:59)
[2017-12-06] MEDS: LORazepam 2 MG/ML VIAL (J2060) IV (14:37)
[2017-12-06] MEDS ORDERED: GLYCOPYRROLATE INJ 0.2 MG/ML 2 ML VIAL As Ordered (15:59)
[2017-12-06] MEDS ORDERED: fentaNYL 100 MCG/2 ML INJECTION (J3010) As Ordered (15:59)
[2017-12-06] MEDS ORDERED: dexameTHASONE 4 MG/ML 1ML VIAL (J1100) As Ordered (15:59)
[2017-12-06] MEDS ORDERED: PROPOFOL 200 MG/20 ML VIAL As Ordered (15:59)
[2017-12-06] MEDS ORDERED: ROCURONIUM BROMIDE 50 MG/5 ML VIAL As Ordered (15:59)
[2017-12-06] MEDS ORDERED: NEOSTIGMINE 10 MG/10 ML VIAL (J2710) As Ordered (15:59)
[2017-12-06] MEDS ORDERED: MIDAZOLAM INJ 2 MG/2 ML VIAL (J2250) As Ordered (15:59)
[2017-12-06] MEDS ORDERED: LIDOCAINE 2% INJ 100 MG/5 ML SDV (FOR ANES.) As Ordered (15:59)
[2017-12-06] MEDS ORDERED: ONDANSETRON 4MG/2ML VIAL (J2405) As Ordered (15:59)
[2017-12-06] MEDS ORDERED: KETOROLAC 60 MG/2 ML VIAL (J1885) As Ordered (16:07)
[2017-12-06] MEDS ORDERED: ePHEDrine SULFATE 25 MG/5 ML(5MG/ML) SYRINGE As Ordered (16:42)
[2017-12-06] MEDS ORDERED: PHENYLephrine HCL 500 MCG/5 ML (100MCG/ML) SYRINGE (J2370) As Ordered (16:42)
[2017-12-06] MEDS ORDERED: PHENYLEPHRINE INJ 10MG/ML VIAL (J2370) As Ordered (17:03)
[2017-12-06] MEDS ORDERED: SUGAMMADEX SODIUM 500 MG/5 ML VIAL (BRIDION) As Ordered (17:29)
[2017-12-06] MEDS ORDERED: HYDROMORPHONE HCL 0.5 MG/ 0.5 ML SYRINGE (J1170 PER 1) IV (17:45)
[2017-12-06] MEDS ORDERED: fentaNYL 100 MCG/2 ML INJECTION (J3010) IV (17:45)
[2017-12-06] MEDS: LR 1,000 ML IV (17:45)
[2017-12-06] MEDS ORDERED: ONDANSETRON 4MG/2ML VIAL (J2405) IV (17:45)
[2017-12-06] MEDS ORDERED: PERCOCET 5MG/325MG TAB PO (17:45)
[2017-12-06] MEDS: AMITRIPTYLINE 25 MG TAB PO (22:20)
[2017-12-06] MEDS: traZODone 100 MG TAB PO (22:20)
[2017-12-06] MEDS: RIVAROXABAN 20 MG TAB (XARELTO) PO (22:20)
[2017-12-06] MEDS: QUEtiapine FUMARATE 100 MG TAB PO (22:21)
[2017-12-07] MEDS: DICYCLOMINE 10 MG CAP PO ×2 (00:01→06:10)
[2017-12-07] MEDS: PERCOCET 5MG/325MG TAB PO ×5 (00:02→20:57)
[2017-12-07] MEDS: LEVOTHYROXINE 88MCG TABLET (0.088 MG) PO (06:10)
[2017-12-07] MEDS: NIFEdipine 10 MG CAP PO (06:12)
[2017-12-07 07:27] LABS: BASO % 0.1 % (0.0-1.0); EOS % 0.1 % (0.0-3.0); HEMATOCRIT 38.9 % (36.0-47.0); HEMOGLOBIN 12.9 g/dl (12.0-15.5); IMMATURE GRANULOCYTE % 0.1 % (0-3.0); LYMPH # 0.6 10^3/uL (1.5-4.5); LYMPH % 7.8 % (24.0-44.0); MEAN CORPUSCULAR HEMOGLOBIN 29.5 pg (27.0-33.0); MEAN CORPUSCULAR HGB CONC 33.2 g/dl (32.0-36.5); MONO # 0.4 10^3/uL (0.0-0.8); MONO % 4.9 % (0.0-5.0); NEUTROPHILS # 7.1 10^3/uL (1.8-7.7); PLATELET COUNT, AUTOMATED 227 10^3/uL (150-450); RED BLOOD COUNT 4.37 10^6/uL (4.00-5.40); RED CELL DISTRIBUTION WIDTH 12.5 % (11.5-14.5); WHITE BLOOD COUNT 8.2 10^3/uL (4.0-10.0)
[2017-12-07 07:48] LABS: ALBUMIN 3.1 GM/DL (3.2-5.2); ALBUMIN/GLOBULIN RATIO 1.11 (1.00-1.93); ALKALINE PHOSPHATASE 61 U/L (45-117); ALT/SGPT 74 U/L (12-78); ANION GAP 8 MEQ/L (8-16); AST/SGOT 62 U/L (7-37); BILIRUBIN,TOTAL 0.6 MG/DL (0.2-1.0); BLOOD UREA NITROGEN 6 MG/DL (7-18); CALCIUM LEVEL 8.6 MG/DL (8.5-10.1); CARBON DIOXIDE LEVEL 26 MEQ/L (21-32); CHLORIDE LEVEL 109 MEQ/L (98-107); CREATININE FOR GFR 1.03 MG/DL (0.55-1.30); GLOMERULAR FILTRATION RATE 59.2 (>51); GLUCOSE, FASTING 121 MG/DL (70-100); MAGNESIUM LEVEL 1.8 MG/DL (1.8-2.4); POTASSIUM SERUM 3.8 MEQ/L (3.5-5.1); SODIUM LEVEL 143 MEQ/L (136-145); TOTAL PROTEIN 5.9 GM/DL (6.4-8.2)
[2017-12-07] MEDS: DULoxetine 30 MG CAP (CYMBALTA) PO (09:30)
[2017-12-07] MEDS: SUCRALFATE 1 GM TAB PO ×4 (09:30→20:57)
[2017-12-07] MEDS: SENOKOT S TAB PO ×2 (09:30→20:56)
[2017-12-07] MEDS: GABAPENTIN 300 MG CAP PO ×4 (09:31→20:57)
[2017-12-07] MEDS: PANTOPRAZOLE 40MG TAB (PROTONIX) PO ×2 (09:31→20:56)
[2017-12-07] MEDS: SENNA 8.6 MG TAB (SENOKOT) PO (09:31)
[2017-12-07] MEDS: tiZANidine 4 MG TAB PO (09:31)
[2017-12-07] MEDS: DOCUSATE SODIUM 100 MG CAP PO ×2 (09:31→20:56)
[2017-12-07] MEDS: NS 1,000 ML IV (09:33)
[2017-12-07] MEDS ORDERED: ISOVUE-370 76% 100ML VIAL (Q9967) As Ordered (12:41)
[2017-12-07] MEDS ORDERED: LIDOCAINE 1% MDV 20ML VIAL As Ordered (15:14)
[2017-12-07] MEDS: SODIUM CHLORIDE 0.9% INJ 10 ML SYR IV (16:29)
[2017-12-07] MEDS: AMITRIPTYLINE 25 MG TAB PO (20:56)
[2017-12-07] MEDS: QUEtiapine FUMARATE 100 MG TAB PO (20:56)
[2017-12-07] MEDS: traZODone 100 MG TAB PO (20:56)
[2017-12-07] MEDS: RIVAROXABAN 20 MG TAB (XARELTO) PO (20:57)
[2017-12-07] MEDS: IPRATROPIUM 0.5MG/ALBUTEROL 2.5MG INH SOL UD 3ML (DUONEB)(J7620) NEB (21:26)
[2017-12-08] MEDS: PERCOCET 5MG/325MG TAB PO ×3 (01:28→20:58)
[2017-12-08] MEDS: ACETAMINOPHEN TAB 650MG DOSE (2X325MG) PO ×3 (02:00→20:57)
[2017-12-08] MEDS: IPRATROPIUM 0.5MG/ALBUTEROL 2.5MG INH SOL UD 3ML (DUONEB)(J7620) NEB (02:10)
[2017-12-08] MEDS: guaiFENesin ER 600 MG TAB PO ×3 (03:28→20:58)
[2017-12-08] MEDS ORDERED: VANCOMYCIN HCL 750 MG, VIAL MATE ADAPTER 1 EACH in D5W 250 ML IV (03:45)
[2017-12-08 03:54] LABS: BASO % 0.5 % (0.0-1.0); EOS # 0.2 10^3/uL (0.0-0.50); HEMATOCRIT 34.9 % (36.0-47.0); HEMOGLOBIN 11.7 g/dl (12.0-15.5); IMMATURE GRANULOCYTE % 0.5 % (0-3.0); LYMPH # 0.9 10^3/uL (1.5-4.5); LYMPH % 11.5 % (24.0-44.0); MEAN CORPUSCULAR HEMOGLOBIN 29.9 pg (27.0-33.0); MEAN CORPUSCULAR HGB CONC 33.5 g/dl (32.0-36.5); MEAN CORPUSCULAR VOLUME 89.3 fl (80.0-96.0); MONO # 0.6 10^3/uL (0.0-0.8); MONO % 7.9 % (0.0-5.0); NEUTROPHILS # 5.9 10^3/uL (1.8-7.7); NEUTROPHILS % 77.6 % (36.0-66.0); PLATELET COUNT, AUTOMATED 162 10^3/uL (150-450); RED BLOOD COUNT 3.91 10^6/uL (4.00-5.40); RED CELL DISTRIBUTION WIDTH 12.9 % (11.5-14.5); WHITE BLOOD COUNT 7.6 10^3/uL (4.0-10.0)
[2017-12-08] MEDS: VANCOMYCIN HCL 1,000 MG, VIAL MATE ADAPTER 1 EACH in D5W 250 ML IV ×3 (04:14→20:56)
[2017-12-08 04:31] LABS: ALBUMIN 2.7 GM/DL (3.2-5.2); ALBUMIN/GLOBULIN RATIO 1.17 (1.00-1.93); ALKALINE PHOSPHATASE 62 U/L (45-117); ALT/SGPT 63 U/L (12-78); ANION GAP 7 MEQ/L (8-16); AST/SGOT 39 U/L (7-37); BILIRUBIN,TOTAL 0.9 MG/DL (0.2-1.0); BLOOD UREA NITROGEN 9 MG/DL (7-18); CALCIUM LEVEL 7.9 MG/DL (8.5-10.1); CARBON DIOXIDE LEVEL 26 MEQ/L (21-32); CHLORIDE LEVEL 109 MEQ/L (98-107); CREATININE FOR GFR 1.04 MG/DL (0.55-1.30); GLOMERULAR FILTRATION RATE 58.6 (>51); GLUCOSE, FASTING 93 MG/DL (70-100); MAGNESIUM LEVEL 1.6 MG/DL (1.8-2.4); POTASSIUM SERUM 3.9 MEQ/L (3.5-5.1); SODIUM LEVEL 142 MEQ/L (136-145)
[2017-12-08] MEDS: SODIUM CHLORIDE 0.9% INJ 10 ML SYR IV ×2 (05:31→17:48)
[2017-12-08] MEDS: LEVOTHYROXINE 88MCG TABLET (0.088 MG) PO (05:31)
[2017-12-08] MEDS: LevoFLOXacin IV 750 MG in APPROPRIATE DILUENT 1 EA IV (05:32)
[2017-12-08] MEDS: MAGNESIUM OXIDE 400 MG TAB (MAG-OX) PO (05:35)
[2017-12-08] MEDS: NS 500 ML IV (06:17)
[2017-12-08] MEDS: DOCUSATE SODIUM 100 MG CAP PO ×2 (09:00→20:59)
[2017-12-08] MEDS: SENOKOT S TAB PO ×2 (09:00→20:59)
[2017-12-08] MEDS: SENNA 8.6 MG TAB (SENOKOT) PO (09:00)
[2017-12-08 09:29] LABS: LACTIC ACID SEPSIS PROTOCOL 2.4 MMOL/L (0.4-2.0)
[2017-12-08] MEDS: PANTOPRAZOLE 40MG TAB (PROTONIX) PO ×2 (09:51→20:58)
[2017-12-08] MEDS: tiZANidine 4 MG TAB PO (09:52)
[2017-12-08] MEDS: DULoxetine 30 MG CAP (CYMBALTA) PO (09:52)
[2017-12-08] MEDS: GABAPENTIN 300 MG CAP PO ×4 (09:52→20:57)
[2017-12-08] MEDS: SUCRALFATE 1 GM TAB PO ×4 (09:52→20:58)
[2017-12-08] MEDS: RIVAROXABAN 20 MG TAB (XARELTO) PO (20:57)
[2017-12-08] MEDS: AMITRIPTYLINE 25 MG TAB PO (20:58)
[2017-12-08] MEDS: QUEtiapine FUMARATE 100 MG TAB PO (20:58)
[2017-12-08] MEDS: traZODone 100 MG TAB PO (20:59)
[2017-12-09] MEDS: LEVOTHYROXINE 88MCG TABLET (0.088 MG) PO (05:05)
[2017-12-09] MEDS: LevoFLOXacin IV 750 MG in APPROPRIATE DILUENT 1 EA IV (05:05)
[2017-12-09] MEDS: SODIUM CHLORIDE 0.9% INJ 10 ML SYR IV ×2 (05:05→17:02)
[2017-12-09] MEDS: ACETAMINOPHEN TAB 650MG DOSE (2X325MG) PO ×2 (05:15→17:01)
[2017-12-09 05:43] LABS: HEMATOCRIT 33.4 % (36.0-47.0); MEAN CORPUSCULAR HEMOGLOBIN 29.2 pg (27.0-33.0); MEAN CORPUSCULAR HGB CONC 32.9 g/dl (32.0-36.5); MEAN CORPUSCULAR VOLUME 88.6 fl (80.0-96.0); PLATELET COUNT, AUTOMATED 163 10^3/uL (150-450); RED BLOOD COUNT 3.77 10^6/uL (4.00-5.40)
[2017-12-09 05:45] LABS: POSITIVE MORPH POS FLAG
[2017-12-09 05:46] LABS: ADD MANUAL DIFFER YES; DIFF SLIDE NUMBER 7
[2017-12-09 05:52] LABS: ALBUMIN 2.5 GM/DL (3.2-5.2); ALKALINE PHOSPHATASE 72 U/L (45-117); ALT/SGPT 42 U/L (12-78); ANION GAP 6 MEQ/L (8-16); AST/SGOT 18 U/L (7-37); BILIRUBIN,TOTAL 0.8 MG/DL (0.2-1.0); BLOOD UREA NITROGEN 12 MG/DL (7-18); CALCIUM LEVEL 7.9 MG/DL (8.5-10.1); CARBON DIOXIDE LEVEL 25 MEQ/L (21-32); CHLORIDE LEVEL 110 MEQ/L (98-107); CREATININE FOR GFR 1.12 MG/DL (0.55-1.30); GLOMERULAR FILTRATION RATE 53.8 (>51); GLUCOSE, FASTING 91 MG/DL (70-100); MAGNESIUM LEVEL 1.8 MG/DL (1.8-2.4); POTASSIUM SERUM 3.9 MEQ/L (3.5-5.1); SODIUM LEVEL 141 MEQ/L (136-145)
[2017-12-09 06:25] LABS: ATYPICAL LYMPH 1 % (0-5); BANDS 6 % (< 11); EOSINOPHILS 1 % (0-5); LYMPHOCYTES 12 % (16-52); MONOCYTES 1 % (0-8); NEUTROPHILS 79 % (35-75)
[2017-12-09 06:26] LABS: ANISOCYTOSIS 1+; MICROCYTOSIS 1+; PLATELET ESTIMATE NORMAL (NORMAL)
[2017-12-09] MEDS: SODIUM CHLORIDE 0.9% 1000ML IV (06:27)
[2017-12-09] MEDS: DULoxetine 30 MG CAP (CYMBALTA) PO (08:20)
[2017-12-09] MEDS: MEROPENEM INJ 1 GM in APPROPRIATE DILUENT 1 EA IV ×3 (08:20→23:28)
[2017-12-09] MEDS: PANTOPRAZOLE 40MG TAB (PROTONIX) PO ×2 (08:21→20:28)
[2017-12-09] MEDS: guaiFENesin ER 600 MG TAB PO ×2 (08:21→20:27)
[2017-12-09] MEDS: SUCRALFATE 1 GM TAB PO ×4 (08:21→20:28)
[2017-12-09] MEDS: GABAPENTIN 300 MG CAP PO ×4 (08:21→20:26)
[2017-12-09] MEDS: tiZANidine 4 MG TAB PO (08:22)
[2017-12-09] MEDS: DOCUSATE SODIUM 100 MG CAP PO ×2 (09:00→20:28)
[2017-12-09] MEDS: SENNA 8.6 MG TAB (SENOKOT) PO (09:00)
[2017-12-09] MEDS: SENOKOT S TAB PO ×2 (09:00→20:29)
[2017-12-09] MEDS: VANCOMYCIN HCL 1,000 MG, VIAL MATE ADAPTER 1 EACH in D5W 250 ML IV ×2 (09:18→20:30)
[2017-12-09 12:49] LABS: CPK CREATINE PHOSPHOKINASE 283 U/L (26-192); MB/CK RELATIVE INDEX 0.85 (< OR =4); TROPONIN I < 0.02 NG/ML (< 0.10)
[2017-12-09 18:00] LABS: CPK CREATINE PHOSPHOKINASE 299 U/L (26-192); MB/CK RELATIVE INDEX 0.54 (< OR =4); TROPONIN I < 0.02 NG/ML (< 0.10)
[2017-12-09] MEDS: QUEtiapine FUMARATE 100 MG TAB PO (20:28)
[2017-12-09] MEDS: AMITRIPTYLINE 25 MG TAB PO (20:28)
[2017-12-09] MEDS: traZODone 100 MG TAB PO (20:28)
[2017-12-09] MEDS: RIVAROXABAN 20 MG TAB (XARELTO) PO (20:29)
[2017-12-10] MEDS: ACETAMINOPHEN TAB 650MG DOSE (2X325MG) PO (04:05)
[2017-12-10 04:13] LABS: HEMATOCRIT 33.9 % (36.0-47.0); HEMOGLOBIN 11.4 g/dl (12.0-15.5); MEAN CORPUSCULAR HEMOGLOBIN 30.1 pg (27.0-33.0); MEAN CORPUSCULAR HGB CONC 33.6 g/dl (32.0-36.5); MEAN CORPUSCULAR VOLUME 89.4 fl (80.0-96.0); PLATELET COUNT, AUTOMATED 205 10^3/uL (150-450); RED BLOOD COUNT 3.79 10^6/uL (4.00-5.40); RED CELL DISTRIBUTION WIDTH 13.2 % (11.5-14.5); WHITE BLOOD COUNT 15.1 10^3/uL (4.0-10.0)
[2017-12-10] MEDS: SODIUM CHLORIDE 0.9% INJ 10 ML SYR IV ×2 (06:00→17:32)
[2017-12-10] MEDS ORDERED: methylPREDNISolone INJ 125 MG/2 ML VIAL (J2930) IV (06:00)
[2017-12-10] MEDS: LEVOTHYROXINE 88MCG TABLET (0.088 MG) PO (06:00)
[2017-12-10] MEDS: methylPREDNISolone INJ 40 MG/1 ML VIAL (J2920) IV ×3 (06:00→21:04)
[2017-12-10] MEDS: NS 1,000 ML IV ×2 (06:15→21:02)
[2017-12-10 07:27] LABS: VANCOMYCIN LEVEL TROUGH 4.4 UG/ML (10.0-20.0)
[2017-12-10 07:47] LABS: ALBUMIN 2.1 GM/DL (3.2-5.2); ALBUMIN/GLOBULIN RATIO 0.78 (1.00-1.93); ALKALINE PHOSPHATASE 79 U/L (45-117); ALT/SGPT 30 U/L (12-78); ANION GAP 8 MEQ/L (8-16); AST/SGOT 15 U/L (7-37); BILIRUBIN,TOTAL 0.6 MG/DL (0.2-1.0); BLOOD UREA NITROGEN 11 MG/DL (7-18); CALCIUM LEVEL 7.8 MG/DL (8.5-10.1); CARBON DIOXIDE LEVEL 24 MEQ/L (21-32); CHLORIDE LEVEL 111 MEQ/L (98-107); CREATININE FOR GFR 0.87 MG/DL (0.55-1.30); GLOMERULAR FILTRATION RATE > 60.0 (>51); GLUCOSE, FASTING 87 MG/DL (70-100); POTASSIUM SERUM 3.6 MEQ/L (3.5-5.1); SODIUM LEVEL 143 MEQ/L (136-145); TOTAL PROTEIN 4.8 GM/DL (6.4-8.2)
[2017-12-10] MEDS: PANTOPRAZOLE 40MG TAB (PROTONIX) PO ×2 (08:27→21:02)
[2017-12-10] MEDS: DOCUSATE SODIUM 100 MG CAP PO ×2 (08:27→21:00)
[2017-12-10] MEDS: GABAPENTIN 300 MG CAP PO ×4 (08:27→21:02)
[2017-12-10] MEDS: DULoxetine 30 MG CAP (CYMBALTA) PO (08:27)
[2017-12-10] MEDS: tiZANidine 4 MG TAB PO (08:27)
[2017-12-10] MEDS: guaiFENesin ER 600 MG TAB PO ×2 (08:27→21:02)
[2017-12-10] MEDS: MEROPENEM INJ 1 GM in APPROPRIATE DILUENT 1 EA IV ×2 (08:27→16:09)
[2017-12-10] MEDS: SENNA 8.6 MG TAB (SENOKOT) PO (08:28)
[2017-12-10] MEDS: SENOKOT S TAB PO ×2 (08:28→21:00)
[2017-12-10] MEDS: SUCRALFATE 1 GM TAB PO ×4 (08:28→21:03)
[2017-12-10] MEDS: VANCOMYCIN HCL 1,000 MG, VIAL MATE ADAPTER 1 EACH in D5W 250 ML IV ×2 (09:28→17:32)
[2017-12-10] MEDS: IPRATROPIUM 0.5MG/ALBUTEROL 2.5MG INH SOL UD 3ML (DUONEB)(J7620) NEB ×2 (15:35→20:55)
[2017-12-10] MEDS ORDERED: ALBUTEROL SULFATE 2.5 MG/0.5 ML INH NEB SOLN NEB (16:00)
[2017-12-10] MEDS: AMITRIPTYLINE 25 MG TAB PO (21:02)
[2017-12-10] MEDS: RIVAROXABAN 20 MG TAB (XARELTO) PO (21:02)
[2017-12-10] MEDS: traZODone 100 MG TAB PO (21:02)
[2017-12-10] MEDS: QUEtiapine FUMARATE 100 MG TAB PO (21:03)
[2017-12-10] MEDS: PERCOCET 5MG/325MG TAB PO (21:04)
[2017-12-11] MEDS: MEROPENEM INJ 1 GM in APPROPRIATE DILUENT 1 EA IV ×4 (00:05→23:48)
[2017-12-11] MEDS: VANCOMYCIN HCL 1,000 MG, VIAL MATE ADAPTER 1 EACH in D5W 250 ML IV ×3 (01:05→20:59)
[2017-12-11] MEDS: IPRATROPIUM 0.5MG/ALBUTEROL 2.5MG INH SOL UD 3ML (DUONEB)(J7620) NEB ×4 (02:58→20:45)
[2017-12-11] MEDS: LEVOTHYROXINE 88MCG TABLET (0.088 MG) PO (05:50)
[2017-12-11] MEDS: SODIUM CHLORIDE 0.9% INJ 10 ML SYR IV ×2 (05:50→17:23)
[2017-12-11] MEDS: methylPREDNISolone INJ 40 MG/1 ML VIAL (J2920) IV ×3 (05:50→21:01)
[2017-12-11 06:19] LABS: HEMATOCRIT 33.4 % (36.0-47.0); MEAN CORPUSCULAR HGB CONC 32.9 g/dl (32.0-36.5); MEAN CORPUSCULAR VOLUME 88.1 fl (80.0-96.0); PLATELET COUNT, AUTOMATED 232 10^3/uL (150-450); RED BLOOD COUNT 3.79 10^6/uL (4.00-5.40); RED CELL DISTRIBUTION WIDTH 13.2 % (11.5-14.5); WHITE BLOOD COUNT 10.8 10^3/uL (4.0-10.0)
[2017-12-11 06:50] LABS: ALBUMIN 2.2 GM/DL (3.2-5.2); ALBUMIN/GLOBULIN RATIO 0.73 (1.00-1.93); ALKALINE PHOSPHATASE 75 U/L (45-117); ALT/SGPT 26 U/L (12-78); ANION GAP 7 MEQ/L (8-16); AST/SGOT 9 U/L (7-37); BILIRUBIN,TOTAL 0.3 MG/DL (0.2-1.0); BLOOD UREA NITROGEN 9 MG/DL (7-18); CALCIUM LEVEL 7.8 MG/DL (8.5-10.1); CARBON DIOXIDE LEVEL 25 MEQ/L (21-32); CHLORIDE LEVEL 112 MEQ/L (98-107); CREATININE FOR GFR 0.65 MG/DL (0.55-1.30); GLOMERULAR FILTRATION RATE > 60.0 (>51); GLUCOSE, FASTING 147 MG/DL (70-100); POTASSIUM SERUM 3.5 MEQ/L (3.5-5.1); SODIUM LEVEL 144 MEQ/L (136-145); TOTAL PROTEIN 5.2 GM/DL (6.4-8.2)
[2017-12-11] MEDS: DULoxetine 30 MG CAP (CYMBALTA) PO (09:00)
[2017-12-11] MEDS: SENOKOT S TAB PO (09:00)
[2017-12-11] MEDS: tiZANidine 4 MG TAB PO (09:00)
[2017-12-11] MEDS: GABAPENTIN 300 MG CAP PO ×4 (09:00→21:00)
[2017-12-11] MEDS: PANTOPRAZOLE 40MG TAB (PROTONIX) PO ×2 (09:00→21:00)
[2017-12-11] MEDS: SENNA 8.6 MG TAB (SENOKOT) PO (09:00)
[2017-12-11] MEDS: SUCRALFATE 1 GM TAB PO ×4 (09:00→21:00)
[2017-12-11] MEDS: DOCUSATE SODIUM 100 MG CAP PO (09:01)
[2017-12-11] MEDS: guaiFENesin ER 600 MG TAB PO ×2 (09:01→21:00)
[2017-12-11] MEDS: NS 1,000 ML IV ×2 (12:06→23:49)
[2017-12-11] MEDS: PERCOCET 5MG/325MG TAB PO ×2 (16:12→21:01)
[2017-12-11] MEDS: RIVAROXABAN 20 MG TAB (XARELTO) PO (21:00)
[2017-12-11] MEDS: traZODone 100 MG TAB PO (21:00)
[2017-12-11] MEDS: QUEtiapine FUMARATE 100 MG TAB PO (21:00)
[2017-12-11] MEDS: AMITRIPTYLINE 25 MG TAB PO (21:00)
[2017-12-12] MEDS: IPRATROPIUM 0.5MG/ALBUTEROL 2.5MG INH SOL UD 3ML (DUONEB)(J7620) NEB ×4 (02:23→20:15)
[2017-12-12] MEDS: SODIUM CHLORIDE 0.9% INJ 10 ML SYR IV ×3 (06:11→18:24)
[2017-12-12] MEDS: methylPREDNISolone INJ 40 MG/1 ML VIAL (J2920) IV ×2 (06:11→17:08)
[2017-12-12] MEDS: LEVOTHYROXINE 88MCG TABLET (0.088 MG) PO (06:11)
[2017-12-12] MEDS: PERCOCET 5MG/325MG TAB PO ×4 (06:11→20:10)
[2017-12-12 06:48] LABS: HEMATOCRIT 32.9 % (36.0-47.0); HEMOGLOBIN 11.3 g/dl (12.0-15.5); MEAN CORPUSCULAR HEMOGLOBIN 29.7 pg (27.0-33.0); MEAN CORPUSCULAR HGB CONC 34.3 g/dl (32.0-36.5); MEAN CORPUSCULAR VOLUME 86.6 fl (80.0-96.0); PLATELET COUNT, AUTOMATED 284 10^3/uL (150-450); RED CELL DISTRIBUTION WIDTH 13.7 % (11.5-14.5); WHITE BLOOD COUNT 14.4 10^3/uL (4.0-10.0)
[2017-12-12 07:11] LABS: C REACTIVE PROTEIN QUANTITATIV 6.65 MG/DL (0.00-0.30)
[2017-12-12 07:13] LABS: ALBUMIN 2.4 GM/DL (3.2-5.2); ALBUMIN/GLOBULIN RATIO 0.83 (1.00-1.93); ALKALINE PHOSPHATASE 69 U/L (45-117); ALT/SGPT 23 U/L (12-78); ANION GAP 6 MEQ/L (8-16); AST/SGOT 9 U/L (7-37); BILIRUBIN,TOTAL 0.2 MG/DL (0.2-1.0); BLOOD UREA NITROGEN 9 MG/DL (7-18); CALCIUM LEVEL 8.2 MG/DL (8.5-10.1); CARBON DIOXIDE LEVEL 26 MEQ/L (21-32); CHLORIDE LEVEL 114 MEQ/L (98-107); CREATININE FOR GFR 0.72 MG/DL (0.55-1.30); GLOMERULAR FILTRATION RATE > 60.0 (>51); GLUCOSE, FASTING 107 MG/DL (70-100); POTASSIUM SERUM 3.5 MEQ/L (3.5-5.1); SODIUM LEVEL 146 MEQ/L (136-145); TOTAL PROTEIN 5.3 GM/DL (6.4-8.2)
[2017-12-12] MEDS: SUCRALFATE 1 GM TAB PO ×4 (08:20→20:09)
[2017-12-12] MEDS: tiZANidine 4 MG TAB PO (08:20)
[2017-12-12] MEDS: MEROPENEM INJ 1 GM in APPROPRIATE DILUENT 1 EA IV ×3 (08:20→23:39)
[2017-12-12] MEDS: guaiFENesin ER 600 MG TAB PO ×2 (08:21→20:10)
[2017-12-12] MEDS: DULoxetine 30 MG CAP (CYMBALTA) PO (08:21)
[2017-12-12] MEDS: GABAPENTIN 300 MG CAP PO ×4 (08:21→20:10)
[2017-12-12 09:14] LABS: VANCOMYCIN LEVEL TROUGH 11.7 UG/ML (10.0-20.0)
[2017-12-12] MEDS: VANCOMYCIN HCL 1,000 MG, VIAL MATE ADAPTER 1 EACH in D5W 250 ML IV (09:34)
[2017-12-12] MEDS: PANTOPRAZOLE 40MG TAB (PROTONIX) PO (09:35)
[2017-12-12] MEDS: POTASSIUM CHLORIDE 10 MEQ SR TABLET PO (12:27)
[2017-12-12] MEDS ORDERED: ISOVUE-370 76% 100ML VIAL (Q9967) As Ordered (14:29)
[2017-12-12] MEDS: VANCOMYCIN HCL 750 MG, VIAL MATE ADAPTER 1 EACH in D5W 250 ML IV (17:08)
[2017-12-12] MEDS: AMITRIPTYLINE 25 MG TAB PO (20:10)
[2017-12-12] MEDS: RIVAROXABAN 20 MG TAB (XARELTO) PO (20:10)
[2017-12-12] MEDS: QUEtiapine FUMARATE 100 MG TAB PO (22:11)
[2017-12-12] MEDS: traZODone 100 MG TAB PO (22:11)
[2017-12-13] MEDS: VANCOMYCIN HCL 750 MG, VIAL MATE ADAPTER 1 EACH in D5W 250 ML IV ×2 (00:35→10:27)
[2017-12-13] MEDS: PERCOCET 5MG/325MG TAB PO ×2 (01:12→09:35)
[2017-12-13] MEDS: IPRATROPIUM 0.5MG/ALBUTEROL 2.5MG INH SOL UD 3ML (DUONEB)(J7620) NEB ×5 (02:29→20:00)
[2017-12-13] MEDS: methylPREDNISolone INJ 40 MG/1 ML VIAL (J2920) IV ×2 (05:37→17:37)
[2017-12-13] MEDS: SODIUM CHLORIDE 0.9% INJ 10 ML SYR IV ×3 (05:37→17:37)
[2017-12-13] MEDS: LEVOTHYROXINE 88MCG TABLET (0.088 MG) PO (05:38)
[2017-12-13 05:54] LABS: HEMATOCRIT 31.4 % (36.0-47.0); HEMOGLOBIN 10.5 g/dl (12.0-15.5); MEAN CORPUSCULAR HEMOGLOBIN 29.5 pg (27.0-33.0); MEAN CORPUSCULAR HGB CONC 33.4 g/dl (32.0-36.5); MEAN CORPUSCULAR VOLUME 88.2 fl (80.0-96.0); PLATELET COUNT, AUTOMATED 262 10^3/uL (150-450); RED BLOOD COUNT 3.56 10^6/uL (4.00-5.40); RED CELL DISTRIBUTION WIDTH 13.9 % (11.5-14.5); WHITE BLOOD COUNT 11.2 10^3/uL (4.0-10.0)
[2017-12-13 06:14] LABS: ALBUMIN 2.2 GM/DL (3.2-5.2); ALBUMIN/GLOBULIN RATIO 0.85 (1.00-1.93); ALKALINE PHOSPHATASE 61 U/L (45-117); ALT/SGPT 91 U/L (12-78); ANION GAP 4 MEQ/L (8-16); AST/SGOT 134 U/L (7-37); BILIRUBIN,TOTAL 0.3 MG/DL (0.2-1.0); BLOOD UREA NITROGEN 11 MG/DL (7-18); C REACTIVE PROTEIN QUANTITATIV 2.64 MG/DL (0.00-0.30); CALCIUM LEVEL 7.8 MG/DL (8.5-10.1); CARBON DIOXIDE LEVEL 29 MEQ/L (21-32); CHLORIDE LEVEL 113 MEQ/L (98-107); GLOMERULAR FILTRATION RATE > 60.0 (>51); GLUCOSE, FASTING 102 MG/DL (70-100); POTASSIUM SERUM 3.7 MEQ/L (3.5-5.1); SODIUM LEVEL 146 MEQ/L (136-145); TOTAL PROTEIN 4.8 GM/DL (6.4-8.2)
[2017-12-13] MEDS ORDERED: ACETAMINOPHEN TAB 650MG DOSE (2X325MG) PO (07:45)
[2017-12-13] MEDS: TIOTROPIUM INHALER/CAPSULE (SPIRIVA) INH (08:00)
[2017-12-13 08:54] LABS: VANCOMYCIN LEVEL TROUGH 15.3 UG/ML (10.0-20.0)
[2017-12-13] MEDS: ADVAIR HFA 230/21MCG INHALER INH ×2 (09:00→20:07)
[2017-12-13] MEDS: MEROPENEM INJ 1 GM in APPROPRIATE DILUENT 1 EA IV ×2 (09:34→16:44)
[2017-12-13] MEDS: SUCRALFATE 1 GM TAB PO ×4 (09:35→20:31)
[2017-12-13] MEDS: tiZANidine 4 MG TAB PO (09:35)
[2017-12-13] MEDS: GABAPENTIN 300 MG CAP PO ×4 (09:36→20:31)
[2017-12-13] MEDS: DULoxetine 30 MG CAP (CYMBALTA) PO (09:36)
[2017-12-13] MEDS: PANTOPRAZOLE 40MG TAB (PROTONIX) PO (09:37)
[2017-12-13] MEDS: guaiFENesin ER 600 MG TAB PO ×2 (10:40→20:31)
[2017-12-13] MEDS: oxyCODONE 5MG TAB PO ×2 (15:16→22:10)
[2017-12-13] MEDS: RIVAROXABAN 20 MG TAB (XARELTO) PO (20:31)
[2017-12-13] MEDS: AMITRIPTYLINE 25 MG TAB PO (20:31)
[2017-12-13] MEDS: traZODone 100 MG TAB PO (20:31)
[2017-12-13] MEDS: QUEtiapine FUMARATE 100 MG TAB PO (22:11)
[2017-12-14] MEDS: MEROPENEM INJ 1 GM in APPROPRIATE DILUENT 1 EA IV (00:27)
[2017-12-14] MEDS: IPRATROPIUM 0.5MG/ALBUTEROL 2.5MG INH SOL UD 3ML (DUONEB)(J7620) NEB ×4 (02:00→20:00)
[2017-12-14] MEDS: SODIUM CHLORIDE 0.9% INJ 10 ML SYR IV ×2 (06:00→17:16)
[2017-12-14] MEDS: methylPREDNISolone INJ 40 MG/1 ML VIAL (J2920) IV (06:09)
[2017-12-14] MEDS: LEVOTHYROXINE 88MCG TABLET (0.088 MG) PO (06:09)
[2017-12-14] MEDS: oxyCODONE 5MG TAB PO ×3 (06:14→18:10)
[2017-12-14 06:19] LABS: HEMATOCRIT 32.4 % (36.0-47.0); MEAN CORPUSCULAR HEMOGLOBIN 29.5 pg (27.0-33.0); MEAN CORPUSCULAR VOLUME 86.9 fl (80.0-96.0); PLATELET COUNT, AUTOMATED 289 10^3/uL (150-450); RED BLOOD COUNT 3.73 10^6/uL (4.00-5.40); RED CELL DISTRIBUTION WIDTH 14.1 % (11.5-14.5)
[2017-12-14 06:39] LABS: C REACTIVE PROTEIN QUANTITATIV 1.32 MG/DL (0.00-0.30)
[2017-12-14 06:43] LABS: ALBUMIN 2.4 GM/DL (3.2-5.2); ALBUMIN/GLOBULIN RATIO 0.92 (1.00-1.93); ALKALINE PHOSPHATASE 72 U/L (45-117); ALT/SGPT 173 U/L (12-78); ANION GAP 6 MEQ/L (8-16); AST/SGOT 105 U/L (7-37); BILIRUBIN,TOTAL 0.2 MG/DL (0.2-1.0); BLOOD UREA NITROGEN 13 MG/DL (7-18); CALCIUM LEVEL 8.2 MG/DL (8.5-10.1); CARBON DIOXIDE LEVEL 29 MEQ/L (21-32); CHLORIDE LEVEL 111 MEQ/L (98-107); CREATININE FOR GFR 0.69 MG/DL (0.55-1.30); GLOMERULAR FILTRATION RATE > 60.0 (>51); GLUCOSE, FASTING 91 MG/DL (70-100); POTASSIUM SERUM 3.9 MEQ/L (3.5-5.1); SODIUM LEVEL 146 MEQ/L (136-145)
[2017-12-14 07:57] LABS: LIPASE 1338 U/L (73-393)
[2017-12-14] MEDS: TIOTROPIUM INHALER/CAPSULE (SPIRIVA) INH (08:45)
[2017-12-14] MEDS: ADVAIR HFA 230/21MCG INHALER INH ×2 (08:46→20:30)
[2017-12-14] MEDS: tiZANidine 4 MG TAB PO (09:15)
[2017-12-14] MEDS: GABAPENTIN 300 MG CAP PO ×4 (09:15→21:07)
[2017-12-14] MEDS: DULoxetine 30 MG CAP (CYMBALTA) PO (09:15)
[2017-12-14] MEDS: PANTOPRAZOLE 40MG TAB (PROTONIX) PO (09:15)
[2017-12-14] MEDS: guaiFENesin ER 600 MG TAB PO ×2 (09:15→21:07)
[2017-12-14] MEDS: SUCRALFATE 1 GM TAB PO ×4 (09:16→21:07)
[2017-12-14] MEDS: MOXIFLOXACIN 400 MG TAB PO (11:03)
[2017-12-14] MEDS: QUEtiapine FUMARATE 100 MG TAB PO (21:07)
[2017-12-14] MEDS: AMITRIPTYLINE 50 MG TAB PO (21:07)
[2017-12-14] MEDS: traZODone 100 MG TAB PO (21:07)
[2017-12-14] MEDS: RIVAROXABAN 20 MG TAB (XARELTO) PO (21:07)
[2017-12-15] MEDS: IPRATROPIUM 0.5MG/ALBUTEROL 2.5MG INH SOL UD 3ML (DUONEB)(J7620) NEB ×2 (00:05→07:52)
[2017-12-15 00:06] LABS: BODY FLUID CULTURE Not Indicated (.); LEGIONELLA ANTIGEN URINE Negative (Negative); ORGANISM ID Not indicated. (.); SPECIMEN SOURCE Urine (.); URINE STREP PNEUMONIAE ANTIGEN Negative (Negative)
[2017-12-15] MEDS: oxyCODONE 5MG TAB PO ×2 (01:37→08:07)
[2017-12-15] MEDS: LEVOTHYROXINE 88MCG TABLET (0.088 MG) PO (05:24)
[2017-12-15] MEDS: MOXIFLOXACIN 400 MG TAB PO (05:24)
[2017-12-15] MEDS: SODIUM CHLORIDE 0.9% INJ 10 ML SYR IV (05:24)
[2017-12-15 05:41] LABS: HEMATOCRIT 32.3 % (36.0-47.0); HEMOGLOBIN 10.8 g/dl (12.0-15.5); MEAN CORPUSCULAR HEMOGLOBIN 29.3 pg (27.0-33.0); MEAN CORPUSCULAR HGB CONC 33.4 g/dl (32.0-36.5); MEAN CORPUSCULAR VOLUME 87.5 fl (80.0-96.0); PLATELET COUNT, AUTOMATED 338 10^3/uL (150-450); RED BLOOD COUNT 3.69 10^6/uL (4.00-5.40); RED CELL DISTRIBUTION WIDTH 14.1 % (11.5-14.5); WHITE BLOOD COUNT 13.5 10^3/uL (4.0-10.0)
[2017-12-15 06:53] LABS: ALBUMIN 2.4 GM/DL (3.2-5.2); ALBUMIN/GLOBULIN RATIO 1.04 (1.00-1.93); ALKALINE PHOSPHATASE 67 U/L (45-117); ALT/SGPT 115 U/L (12-78); ANION GAP 6 MEQ/L (8-16); AST/SGOT 33 U/L (7-37); BILIRUBIN,TOTAL 0.2 MG/DL (0.2-1.0); BLOOD UREA NITROGEN 15 MG/DL (7-18); C REACTIVE PROTEIN QUANTITATIV 0.65 MG/DL (0.00-0.30); CARBON DIOXIDE LEVEL 29 MEQ/L (21-32); CHLORIDE LEVEL 112 MEQ/L (98-107); CREATININE FOR GFR 0.67 MG/DL (0.55-1.30); GLOMERULAR FILTRATION RATE > 60.0 (>51); GLUCOSE, FASTING 73 MG/DL (70-100); POTASSIUM SERUM 3.5 MEQ/L (3.5-5.1); SODIUM LEVEL 147 MEQ/L (136-145); TOTAL PROTEIN 4.7 GM/DL (6.4-8.2)
[2017-12-15] MEDS: ADVAIR HFA 230/21MCG INHALER INH (07:52)
[2017-12-15] MEDS: TIOTROPIUM INHALER/CAPSULE (SPIRIVA) INH (07:52)
[2017-12-15] MEDS: tiZANidine 4 MG TAB PO (08:04)
[2017-12-15] MEDS: SUCRALFATE 1 GM TAB PO (08:04)
[2017-12-15] MEDS: GABAPENTIN 300 MG CAP PO (08:04)
[2017-12-15] MEDS: predniSONE 20 MG TAB PO (08:08)
[2017-12-15] MEDS: PANTOPRAZOLE 40MG TAB (PROTONIX) PO (08:08)
[2017-12-15] MEDS: guaiFENesin ER 600 MG TAB PO (08:08)
[2017-12-15] MEDS: DULoxetine 30 MG CAP (CYMBALTA) PO (08:08)
== END 2017-12-15 13:10 | disposition home or self-care (01) | DRG 391 ==
LOC: M PCU 12-09 10:05 → M ED 13:07 → M MS5PR 12-12 18:40 → M ED INP 20:42 → M MS5PR 22:55
PROC: 0DB38ZX Excision of Lower Esophagus, Via Natural or Artificial Opening Endoscopic, Diagnostic (ICD-10-PCS; principal; 2017-12-03 12:52)
PROC: 0DB78ZX Excision of Stomach, Pylorus, Via Natural or Artificial Opening Endoscopic, Diagnostic (ICD-10-PCS; 2017-12-03 12:52)
PROC: 0F798DZ Dilation of Common Bile Duct with Intraluminal Device, Via Natural or Artificial Opening Endoscopic (ICD-10-PCS; 2017-12-03 12:52)
PROC: 02HV33Z Insertion of Infusion Device into Superior Vena Cava, Percutaneous Approach (ICD-10-PCS; 2017-12-03 12:52)
DX: K57.32 Diverticulitis of large intestine without perforation or abscess without bleeding (principal); J18.9 Pneumonia, unspecified organism; J96.01 Acute respiratory failure with hypoxia; J44.1 Chronic obstructive pulmonary disease with (acute) exacerbation; J44.0 Chronic obstructive pulmonary disease with (acute) lower respiratory infection; G35 Multiple sclerosis; F32.9 Major depressive disorder, single episode, unspecified; E06.3 Autoimmune thyroiditis; K59.00 Constipation, unspecified; K29.70 Gastritis, unspecified, without bleeding; K21.0 Gastro-esophageal reflux disease with esophagitis; Z90.49 Acquired absence of other specified parts of digestive tract; Z90.710 Acquired absence of both cervix and uterus; Z87.891 Personal history of nicotine dependence; Z79.01 Long term (current) use of anticoagulants; Z86.711 Personal history of pulmonary embolism; Z79.899 Other long term (current) drug therapy; Y95 Nosocomial condition

== ENCOUNTER 2018-01-27 11:30 | Emergency (ER) | payer MEDICARE ==
[2018-01-27] MEDS: MORPHINE 4 MG/ML 1ML VIAL/SYRINGE (J2270) IV ×2 (12:04→13:42)
[2018-01-27] MEDS ORDERED: ONDANSETRON 4MG/2ML VIAL (J2405) As Ordered (12:09)
[2018-01-27 12:10] LABS: BASO % 0.5 % (0.0-1.0); EOS # 0.9 10^3/uL (0.0-0.50); EOS % 10.8 % (0.0-3.0); HEMATOCRIT 43.4 % (36.0-47.0); HEMOGLOBIN 14.2 g/dl (12.0-15.5); IMMATURE GRANULOCYTE % 0.4 % (0-3.0); LYMPH # 2.2 10^3/uL (1.5-4.5); LYMPH % 25.9 % (24.0-44.0); MEAN CORPUSCULAR HEMOGLOBIN 29.2 pg (27.0-33.0); MEAN CORPUSCULAR HGB CONC 32.7 g/dl (32.0-36.5); MEAN CORPUSCULAR VOLUME 89.1 fl (80.0-96.0); MONO # 0.6 10^3/uL (0.0-0.8); MONO % 7.3 % (0.0-5.0); NEUTROPHILS # 4.7 10^3/uL (1.8-7.7); NEUTROPHILS % 55.1 % (36.0-66.0); PLATELET COUNT, AUTOMATED 277 10^3/uL (150-450); RED BLOOD COUNT 4.87 10^6/uL (4.00-5.40); RED CELL DISTRIBUTION WIDTH 13.7 % (11.5-14.5); WHITE BLOOD COUNT 8.5 10^3/uL (4.0-10.0)
[2018-01-27 12:15] LABS: INR 1.09; PROTHROMBIN TIME 14.2 SECONDS (12.1-14.4)
[2018-01-27 12:16] LABS: AMORPHOUS SEDIMENT RFX SMALL (NEGATIVE); CALCIUM OXALATE CRYSTALS RFX LARGE; KETONE, URINE AUTO RFX TRACE mg/dL (NEGATIVE); MUCUS, URINE RFX SMALL (NEGATIVE); NITRITE, URINE AUTO RFX NEGATIVE (NEGATIVE); PARTIAL THROMBOPLASTIN TIME 28.9 SECONDS (25.4-37.6); RBC, URINE AUTO RFX 3 /HPF (0-3); SPECIFIC GRAVITY UR AUTO RFX 1.024 (1.002-1.035); SQUAM EPITHELIAL CELL UR AURFX 2 /HPF (0-6); WBC, URINE AUTO RFX 5 /HPF (0-3)
[2018-01-27 12:17] LABS: LEUKOCYTE ESTERASE UR AUTO RFX 1+ (NEGATIVE)
[2018-01-27 12:19] LABS: ALBUMIN 3.5 GM/DL (3.2-5.2); ALBUMIN/GLOBULIN RATIO 0.92 (1.00-1.93); ALKALINE PHOSPHATASE 71 U/L (45-117); ALT/SGPT 18 U/L (12-78); AMYLASE 46 U/L (25-115); ANION GAP 7 MEQ/L (8-16); AST/SGOT 12 U/L (7-37); BILIRUBIN,DIRECT 0.1 MG/DL (0.0-0.2); BILIRUBIN,TOTAL 0.4 MG/DL (0.2-1.0); BLOOD UREA NITROGEN 7 MG/DL (7-18); CARBON DIOXIDE LEVEL 26 MEQ/L (21-32); CHLORIDE LEVEL 107 MEQ/L (98-107); CREATININE FOR GFR 0.91 MG/DL (0.55-1.30); GLOMERULAR FILTRATION RATE > 60.0 (>51); GLUCOSE, FASTING 97 MG/DL (70-100); LIPASE 243 U/L (73-393); POTASSIUM SERUM 3.7 MEQ/L (3.5-5.1); SODIUM LEVEL 140 MEQ/L (136-145); TOTAL PROTEIN 7.3 GM/DL (6.4-8.2)
[2018-01-27] MEDS: ONDANSETRON 4MG/2ML VIAL (J2405) IV (12:20)
[2018-01-27] MEDS ORDERED: ISOVUE-370 76% 100ML VIAL (Q9967) As Ordered (13:38)
== END 2018-01-27 14:30 | disposition home or self-care (01) ==
LOC: M ED 11:30
DX: K52.9 Noninfective gastroenteritis and colitis, unspecified (principal)
CPT/HCPCS: J2270

== ENCOUNTER 2018-01-28 11:51 | Day surgery (SDC) | payer MEDICARE ==
[2018-01-28] MEDS: NS 1,000 ML IV (08:00)
[2018-01-28] MEDS ORDERED: PROPOFOL 200 MG/20 ML VIAL As Ordered (13:07)
[2018-01-28] MEDS ORDERED: LIDOCAINE 2% INJ 100 MG/5 ML SDV (FOR ANES.) As Ordered (13:08)
[2018-01-28] MEDS ORDERED: fentaNYL 100 MCG/2 ML INJECTION (J3010) As Ordered (13:53)
== END 2018-01-28 14:51 | disposition home or self-care (01) ==
LOC: M OPP 11:51
DX: K83.8 Other specified diseases of biliary tract (principal); R12 Heartburn; J45.909 Unspecified asthma, uncomplicated; J44.9 Chronic obstructive pulmonary disease, unspecified; G35 Multiple sclerosis; F33.9 Major depressive disorder, recurrent, unspecified; M19.90 Unspecified osteoarthritis, unspecified site; R06.83 Snoring; F41.9 Anxiety disorder, unspecified; Z79.01 Long term (current) use of anticoagulants; Z98.890 Other specified postprocedural states; Z98.0 Intestinal bypass and anastomosis status; Z86.711 Personal history of pulmonary embolism; Z86.19 Personal history of other infectious and parasitic diseases; Z87.891 Personal history of nicotine dependence; Z79.899 Other long term (current) drug therapy; Z88.1 Allergy status to other antibiotic agents; Z88.0 Allergy status to penicillin
CPT/HCPCS: 43235

== ENCOUNTER 2018-02-01 09:31 | Day surgery (SDC) | payer MEDICARE ==
[~2018-02-01 09:31] MED LIST changes: -BREO1INH INH; -COPA20IN SC; -DULO1CAP3 PO; -GABA600T PO; -IBUP-1022 PO; -LEVO88TA3 PO; +LIDOCAINE 2% INJ 100 MG/5 ML SDV (FOR ANES.) As Ordered; +NS 1,000 ML IV; -OXYC1TAB23 PO; -PANT40TA2 PO; -PRED10TA2 PO; -PROAAER10 INH; +PROPOFOL 200 MG/20 ML VIAL As Ordered; -SERO1TAB PO; -TIZA2TA PO; -TRAZ-136 PO
== END 2018-02-01 11:30 | disposition home or self-care (01) ==
LOC: M OPP 09:31
DX: D12.4 Benign neoplasm of descending colon (principal); K57.30 Diverticulosis of large intestine without perforation or abscess without bleeding; J44.9 Chronic obstructive pulmonary disease, unspecified; E03.9 Hypothyroidism, unspecified; K83.8 Other specified diseases of biliary tract; Z98.0 Intestinal bypass and anastomosis status; Z98.890 Other specified postprocedural states; Z79.890 Hormone replacement therapy; Z79.899 Other long term (current) drug therapy; Z79.2 Long term (current) use of antibiotics; Z79.01 Long term (current) use of anticoagulants; Z88.0 Allergy status to penicillin; Z88.1 Allergy status to other antibiotic agents; Z86.711 Personal history of pulmonary embolism
CPT/HCPCS: 45385